=== PATIENT | female | born 1935 | race Caucasian/White ===

== ENCOUNTER 2017-10-07 01:36 | Emergency (ER) | payer MEDICARE ==
[~2017-10-07] VITALS: Ht 157.5 cm; Wt 76.2 kg
[~2017-10-07 01:36] MED LIST: ALLOPURINOL100 MG PO; CARVEDILOL3.125 MG PO; FUROSEMIDE20 MG PO; GABAPENTIN100 MG PO; GLIPIZIDE5 MG PO; GLUCOSAMINE CH1 EAC2 PO; GLUCOSAMINE CH1 EACH; LANTUS100 UNITS/ SC; LISINOPRIL5 MG PEG; PRAVASTATIN SOD10 MG PO; VITAMIN D10000 UNIT PO
--- OUTSIDE RECORDS SUMMARY | 2017-10-07 01:39 | XMS REPORT | Clinical Summary ---
Author Author FARHEEN [facility] Address Unknown Phone Unavailable Care Team Providers Care Toddler Lead Teacher Name Role Phone PCP Unavailable Allergies No Known Allergies Current Medications Prescription Sig. Disp. Refills Start End Date Status Date glipiZIDE (GLUCOTROL) 10 Take 10 mg by mouth 2 Active MG tablet (two) times daily before meals. furosemide (LASIX) 20 MG Take 20 mg by mouth 2 Active tablet (two) times daily. allopurinol (ZYLOPRIM) Take 100 mg by mouth Active 100 MG tablet daily. carvedilol (COREG) 12.5 Take 12.5 mg by mouth 2 Active MG tablet (two) times daily with breakfast and dinner. gabapentin (NEURONTIN) Take 100 mg by mouth 3 Active 100 MG capsule (three) times daily. pravastatin (PRAVACHOL) Take 10 mg by mouth Active 10 MG tablet daily. insulin glargine (LANTUS) Inject subcutaneously Active 100 unit/mL injection nightly Use as directed . traMADol (ULTRAM) 50 mg Take 1 tablet (50 mg 20 tablet 0 06/29/19 Active tablet total) by mouth every 6 18 19 (six) hours as needed for Pain. Max Daily Amount: 200 mg Active Problems Problem Noted Date ESRD (end stage renal disease) on dialysis ([facility]) 06/29/2017 Encounters Date Type Specialty Care Team Description 06/29/2017 Hospital Frank Dykes, ESRD (end stage renal Encounter MD disease) on dialysis ([facility]) 06/29/2017 Anesthesia Shahzad Slater MD Event 06/29/2017 Procedure Pass 06/29/2017 Surgery Frank Dykes, INSERTION,DIALYSIS MD CATHETER 06/28/2017 Orders Only Transplant Rylee Marinelli RN after 10/06/2016 Social History Tobacco Use Types Packs/Day Years Used Date Never Smoker Smokeless Tobacco: Never Used Alcohol Use Drinks/Week oz/Week Comments No Sex Assigned at Date Recorded Not on file Last Filed Vital Signs Vital Sign Reading Time Taken Blood Pressure 104/57 06/29/2017 11:15 AM TRAVEL RN Pulse 81 06/29/2017 11:15 AM TRAVEL RN Temperature 36.4 C (97.5 F) 06/29/2017 9:55 AM TRAVEL RN Respiratory Rate 16 06/29/2017 11:15 AM TRAVEL RN Oxygen Saturation 94% 06/29/2017 11:30 AM TRAVEL RN Inhaled Oxygen - - Concentration Weight 76.7 kg (169 lb) 06/29/2017 9:55 AM TRAVEL RN Height 157.5 cm (5' 2") 06/29/2017 9:55 AM TRAVEL RN Body Mass Index 30.91 06/29/2017 9:55 AM TRAVEL RN Plan of Treatment Not on file Procedures Procedure Name Priority Date/Time Associated Diagnosis Comments INSERTION,DIALYSIS 06/29/2017 ESRD (end stage renal CATHETER 7:30 AM TRAVEL RN disease) (HCC) Case Notes LEFT REVISION TRANSLOCAT ION LEFT UPPER EXTREMITY DIALYSIS ACCESS after 10/06/2016 Results * RHYTHM STRIP - SCAN (07/01/2017 7:50 AM) * TRANSFUSION SERVICE REPORT - SCAN (06/30/2017 5:43 PM) * Electrocardiogram, 12-lead (06/29/2017 7:51 AM) Specimen Performing Laboratory [employer] Narrative Ventricular Rate 61 BPM Atrial Rate 61 BPM P-R Interval 184 ms QRS Duration 82 ms Q-T Interval 452 ms QTC Calculation(Bazett) 455 ms P Seaman 23 degrees R Seaman 23 degrees T Seaman 71 degrees Normal sinus rhythm Normal ECG No previous ECGs available Confirmed by Camden López Alireaz ([id number]) on 06/29/2017 7:26:36 PM Procedure Note Interface, External Ris In - 06/29/2017 7:26 PM TRAVEL RN Ventricular Rate 61 BPM Atrial Rate 61 BPM P-R Interval 184 ms QRS Duration 82 ms Q-T Interval 452 ms QTC Calculation(Bazett) 455 ms P Seaman 23 degrees R Seaman 23 degrees T Seaman 71 degrees Normal sinus rhythm Normal ECG No previous ECGs available Confirmed by Camden López Alireaz ([id number]) on 06/29/2017 7:26:36 PM * Potassium-Stat Lab (06/29/2017 6:46 AM) Component Value Ref Range Potassium 3.6 3.6 - 5.5 meq/L Specimen Performing Laboratory Blood, Arterial [address] [address] * Glucose-Stat Lab (06/29/2017 6:46 AM) Component Value Ref Range Glucose 92 70 - 110 mg/dL Specimen Performing Laboratory Blood, [address] [address] * Type and screen, automated (06/29/2017 6:46 AM) Component Value Ref Range ABO/RH AUTOMATED (BEAKER) B POSITIVE Ab Scrn NEGATIVE Specimen Performing Laboratory Blood [address] [address] * HGB/HCT (H&H)-Stat Lab (06/29/2017 6:46 AM) Component Value Ref Range Hemoglobin 10.7 (L) 12.0 - 15.0 g/dL Hematocrit 31.0 (L) 36.0 - 45.0 % Specimen Performing Laboratory Blood, Arterial [address] [address] * CBC with platelet count + automated diff (06/29/2017 6:46 AM) Component Value Ref Range WBC 5.8 3.5 - 10.5 K/ L RBC 3.77 (L) 3.93 - 5.22 M/ L Hemoglobin 11.4 11.2 - 15.7 GM/DL Hematocrit 36.2 34.1 - 44.9 % MCV 96.0 (H) 79.4 - 94.8 fL MCH 30.2 25.6 - 32.2 pg MCHC 31.5 (L) 32.2 - 35.5 GM/DL RDW 14.5 (H) 11.7 - 14.4 % Platelets 145 (L) 150 - 450 K/CU MM MPV 11.0 9.4 - 12.3 fL nRBC 0 0 - 0 /100 WBC % Neutros 50 % % Lymphs 34 % % Monos 11 % % Eos 4 % % Baso 1 % # Neutros 2.89 1.56 - 6.13 K/ L # Lymphs 1.94 1.18 - 3.74 K/ L # Monos 0.61 (H) 0.24 - 0.36 K/ L # Eos 0.25 0.04 - 0.36 K/ L # Baso 0.04 0.01 - 0.08 K/ L Immature 0 0 - 1 % Granulocytes-Relative Specimen Performing Laboratory Blood [address] [address] * Prothrombin time/INR (06/29/2017 6:46 AM) Component Value Ref Range Protime 14.3 11.7 - 14.7 seconds INR 1.1 <=5.9 Specimen Performing Laboratory Blood [address] [address] Narrative RECOMMENDED COUMADIN/WARFARIN INR THERAPY RANGES STANDARD DOSE: 2.0 - 3.0 Includes: PROPHYLAXIS for venous thrombosis, systemic embolization; TREATMENT for venous thrombosis and/or pulmonary embolus. HIGH RISK: Target INR is 2.5-3.5 for patients with mechanical heart valves. * CBC with platelet count + automated diff (06/29/2017 6:46 AM) Specimen Performing Laboratory Blood Narrative The following orders were created for panel order CBC with platelet count + automated diff. Procedure Abnormality Status --------- - ------ CBC with platelet count ...[[id number]]AbnormalFinal result Please view results for these tests on the individual orders. * Basic Metabolic Panel (06/29/2017 6:46 AM) Component Value Ref Range Sodium 143 136 - 145 meq/L Potassium 3.7 3.5 - 5.1 meq/L Chloride 103 98 - 107 meq/L CO2 30 (H) 22 - 29 meq/L BUN 24 (H) 7 - 21 mg/dL Creatinine 3.21 (H) 0.57 - 1.25 mg/dL Glucose 92 70 - 105 mg/dL Calcium 8.7 8.4 - 10.2 mg/dL EGFR 14Comment: ESTIMATED GFR IS NOT ACCURATE mL/min/1.73 sq m CREATININE CLEARANCE IN PREDICTING GLOMERULAR FILTRATION RATE. ESTIMATED GFR IS NOT APPLICABLE FOR DIALYSIS PATIENTS. Specimen Performing Laboratory Blood [address] [address] after 10/06/2016
--- OUTSIDE RECORDS SUMMARY | 2017-10-07 01:39 | XMS REPORT ---
Author Author [facility] Address Unknown Phone Unavailable Care Team Providers Care Pediatric Speech Language Pathologist Name Role Phone NIMA HERNÁNDEZ Unavailable Unavailable MEGAN PITTS Unavailable Unavailable Problems This patient has no known problems. Allergies, Adverse Reactions, Alerts This patient has no known allergies or adverse reactions. Medications This patient has no known medications. Results Test Description Test Time Test Comments Text Results Atomic Results Result Comments BASIC METABOLIC PANEL 2017-06-29 10:41:00 SODIUM (BEAKER) (test ikly=552) 143 meq/L 136-145 POTASSIUM (BEAKER) (test mgqk=091) 3.7 meq/L 3.5-5.1 CHLORIDE (BEAKER) (test vtka=551) 103 meq/L 98-107 CO2 (BEAKER) (test txrf=375) 30 meq/L 22-29 BLOOD UREA NITROGEN (BEAKER) (test qine=805) 24 mg/dL 7-21 CREATININE (BEAKER) (test luov=991) 3.21 mg/dL 0.57-1.25 GLUCOSE RANDOM (BEAKER) (test vzel=740) 92 mg/dL 70-105 CALCIUM (BEAKER) (test dmuc=357) 8.7 mg/dL 8.4-10.2 EGFR (BEAKER) (test aubs=6054) 14 mL/min/1.73 sq m ESTIMATED GFR IS NOT ACCURATE CREATININE CLEARANCE IN PREDICTING GLOMERULAR FILTRATION RATE. ESTIMATED GFR IS NOT APPLICABLE FOR DIALYSIS PATIENTS. PROTHROMBIN TIME/VXO2654-10-10 07:21:00* Test Item Value Reference Range Comments PROTIME (BEAKER) (test esli=177) 14.3 seconds 11.7-14.7 INR (BEAKER) (test tskw=677) 1.1 <=5.9 RECOMMENDED COUMADIN/WARFARIN INR THERAPY RANGESSTANDARD DOSE: 2.0 - 3.0 Includes: PROPHYLAXIS for venous thrombosis, systemic embolization; TREATMENT for venous thrombosis and/or pulmonary embolus.HIGH RISK: Target INR is 2.5-3.5 for patients with mechanical heart valves.CBC W/PLT COUNT & AUTO [id number] 07:15:00* Test Item Value Reference Range Comments WHITE BLOOD CELL COUNT (BEAKER) (test vruj=426) 5.8 K/ L 3.5-10.5 RED BLOOD CELL COUNT (BEAKER) (test mbnd=259) 3.77 M/ L 3.93-5.22 HEMOGLOBIN (BEAKER) (test iuai=522) 11.4 GM/DL 11.2-15.7 HEMATOCRIT (BEAKER) (test atxo=801) 36.2 % 34.1-44.9 MEAN CORPUSCULAR VOLUME (BEAKER) (test grwz=900) 96.0 fL 79.4-94.8 MEAN CORPUSCULAR HEMOGLOBIN (BEAKER) (test eqtg=269) 30.2 pg 25.6-32.2 MEAN CORPUSCULAR HEMOGLOBIN CONC (BEAKER) (test txbf=641) 31.5 GM/DL 32.2- 35.5 RED CELL DISTRIBUTION WIDTH (BEAKER) (test xznq=240) 14.5 % 11.7-14.4 PLATELET COUNT (BEAKER) (test vklb=671) 145 K/CU MM 150-450 MEAN PLATELET VOLUME (BEAKER) (test sozx=462) 11.0 fL 9.4-12.3 NUCLEATED RED BLOOD CELLS (BEAKER) (test gqmc=909) 0 /100 WBC 0-0 NEUTROPHILS RELATIVE PERCENT (BEAKER) (test vakw=870) 50 % LYMPHOCYTES RELATIVE PERCENT (BEAKER) (test twtd=213) 34 % MONOCYTES RELATIVE PERCENT (BEAKER) (test wify=165) 11 % EOSINOPHILS RELATIVE PERCENT (BEAKER) (test bhej=047) 4 % BASOPHILS RELATIVE PERCENT (BEAKER) (test rluq=688) 1 % NEUTROPHILS ABSOLUTE COUNT (BEAKER) (test gohf=676) 2.89 K/ L 1.56-6.13 LYMPHOCYTES ABSOLUTE COUNT (BEAKER) (test yjuy=603) 1.94 K/ L 1.18-3.74 MONOCYTES ABSOLUTE COUNT (BEAKER) (test eftd=182) 0.61 K/ L 0.24-0.36 EOSINOPHILS ABSOLUTE COUNT (BEAKER) (test cuia=855) 0.25 K/ L 0.04-0.36 BASOPHILS ABSOLUTE COUNT (BEAKER) (test vuwo=229) 0.04 K/ L 0.01-0.08 IMMATURE GRANULOCYTES-RELATIVE PERCENT (BEAKER) (test sqbg=7025) 0 % 0-1 HGB/HCT (H&H) - STAT [id number] 06:53:00* Test Item Value Reference Range Comments HEMOGLOBIN (BEAKER) (test lxnt=971) 10.7 g/dL 12.0-15.0 HEMATOCRIT (BEAKER) (test krbw=957) 31.0 % 36.0-45.0 GLUCOSE-STAT [id number] 06:52:00* Test Item Value Reference Range Comments GLUCOSE RANDOM (BEAKER) (test slag=738) 92 mg/dL 70-110 POTASSIUM-STAT [id number] 06:52:00* Test Item Value Reference Range Comments POTASSIUM (BEAKER) (test rwwt=118) 3.6 meq/L 3.6-5.5 CHEST SINGLE (PORTABLE) [place] [address] Patient Name: YFN MEZA MR #: [id number] : 1935 Age/Sex: 81/F Req #: [id number] Adm Physician: MEGAN PITTS MD Ordered by: JONATHAN GALLEGO MD Report #: [id number] Location: MED/SURG Room/Bed: [facility] _ Procedure: [id number] DX/CHEST SINGLE (PORTABLE) Exam Date: 03/12/17 Exam Time: 1750 REPORT STATUS: Signed PROCEDURE: A single AP view of the chest. COMPARISON: Chest x-ray . INDICATIONS: CENTRAL LINE PLACEMENT, SOB FINDINGS: Lines/tubes: Right IJ dialysis catheter with tip at the atriocaval junction. Lungs : The lungs are well inflated and clear. There is no evidence of pneumonia or pulmonary edema. Pleura: There is no pleural effusion or pneumothorax. Heart and mediastinum: Mild cardiomegaly. Atherosclerotic calcifications in the aorta. Bones: No acute bony abnormality. IMPRESSION: 1. Right IJ dialysis catheter with tip at atriocaval junction. Good position. 2. No pneumothorax. Dictated by: Gab Richards M.D. on 03/12/2017 at 18:20 Electronically approved by: Gab Richards M.D. on 03/12/2017 at 18:20 Dictated By: GAB RICHARDS MD 19 Transcribed By: ADITYA on 03/12/171819 COPY TO: JONATHAN GALLEGO MD SHOULDER RIGHT COMPLETE [place] [address] Patient Name: YFN MEZA MR #: [id number] : 1935 Age/Sex: 81/F Req #: [id number] Adm Physician: MEGAN PITTS MD Ordered by: MEGAN PITTS MD Report #: [id number] Location: MED/ SURG Room/Bed: [facility] Procedure: [id number] DX/ SHOULDER RIGHT COMPLETE Exam Date: 03/12/17 Exam Time: 1750 REPORT STATUS: Signed PROCEDURE: X-RAY RIGHT SHOULDER, COMPLETE COMPARISON: None. INDICATIONS: RIGHT SHOULDER PAIN FINDINGS: There are no fractures, dislocations, lytic or blastic lesions. The bones are well-mineralized. The soft-tissues are unremarkable. Mild degenerative changes in the right glenohumeral joint and right a.c. joint. CONCLUSION: Mild degenerative changes in the right shoulder. Dictated by: Gab Richards M.D. on 03/12/2017 at 18:21 Electronically approved by: Gab Richards M.D. on 03/12/2017 at 18:21 Dictated By: GAB RICHARDS MD 20 Transcribed By: ADITYA on 03/12/171820 COPY TO: MEGAN PITTS MD ANKLE 3 + VIEWS RIGHT [place] [address] Patient Name: YFN MEZA MR #: [id number] : 1935 Age/Sex: 81/F Req #: [id number] Adm Physician: MEGAN PITTS MD Ordered by: MEGAN PITTS MD Report # : [id number] Location: MED/SURG Room/Bed: [facility] Procedure: [id number] DX/ANKLE 3 + VIEWS RIGHT Exam Date: 03/12/17 Exam Time: 1750 REPORT STATUS: Signed PROCEDURE: X- RAY RIGHT ANKLE, COMPLETE TECHNIQUE: 3 views of the right ankle. INDICATION: Right ankle pain. COMPARISON: None. FINDINGS: Diffuse osteopenia. Diffuse soft tissue swelling. Diffuse vascular calcifications. No fractures or dislocations. Calcaneal enthesophyte at the plantar fascia and Achilles tendon insertion. CONCLUSION: Diffuse soft tissue swelling of the right ankle with diffuse vascular calcifications. Dictated by: Gab Richards M.D. on 03/12/2017 at 18:22 Electronically approved by: Gab Richards M.D. on 03/12/2017 at 18:22 Dictated By: GAB RICHARDS MD 21 Transcribed By: ADITYA on 03/12/171821 COPY TO: MEGAN PITTS MD SPECIAL PROCEDURE IN DIRECTOR OF GRADUATE ADMISSIONS [place] [address] Patient Name: YFN MEZA MR #: [id number] : 1935 Age/Sex: 81/F Req #: [id number] Adm Physician: MEGAN PITTS MD Ordered by: CORNELIO MCKEON, DEDRA MCKEON Report #: [id number] Location: [facility]/SURG Room/Bed: [facility] _ Procedure: [id number] IR/SPECIAL PROCEDURE IN DIRECTOR OF GRADUATE ADMISSIONS Exam Date: Exam Time: REPORT STATUS: Signed Procedure: Tunneled hemodialysis catheter placement Medications: Versed 1 mg intravenous, fentanyl 50 mcg intravenous. The patient's vital signs, including pulse oximetry, were continuously monitored by the interventional radiology nurse. Fluoroscopy time: 0.4 minutes. Dose area product: 222.6 cGycm2 Contrast used: None Estimated blood loss: Minimal. Complications : No immediate. Procedure in detail: Informed consent for the procedure was obtained from the patient after discussion of risks and benefits. The right neck and upper chest was prepped and draped in the standard sterile fashion after the patient was placed in the supine position on the fluoroscopic table. 1% lidocaine was administered into the skin and subcutaneous tissues of the right lower neck for local anesthesia. A 0.035 inch Amplatz superstiff wire was advanced into the SVC. Attention was then turned to the right upper chest. 1% lidocaine was used to anesthetize a subcutaneous tract extending from the planned catheter exit site to the venotomy at the right lower neck. A stab incision was made on the right upper chest. Subsequently, the catheter was tunneled from the exit site of the right upper chest to the venotomy at the right lower neck. The retention cuff of the catheter was advanced well into the subcutaneous tunnel. Serial dilatation over the Amplatz wire was accomplished. Finally, a 16.5- Trinidadian peel-away sheath was advanced over the wire under fluoroscopic guidance. The wire and inner dilator of the sheath were removed and the catheter was advanced through the peel-away sheath, which was then broken and removed. The split tip catheter was positioned in the right atrium. Each catheter lumen showed good bidirectional flow. Each lumen was then packed with 1000 units of heparin. The catheter was secured at the exit site on the right upper chest with monofilament nylon suture. A Vicryl pursestring suture was placed around the catheter at the entry site. The venotomy at the right lower neck was closed with tissue adhesive and a single Vicryl suture. A sterile dressing was applied. The patient tolerated the procedure well without immediate complication. Impression: Successful placement of a tunneled dual-lumen hemodialysis catheter (16-Trinidadian, 19-cm tip-cuff length Bard split tip catheter) by a right internal jugular approach. Signed by: Dr. Jamie Boykin DO on 03/12/2017 4:50 PM Dictated By: JAMIE BOYKIN DO 1123 Transcribed By: NICCI on 03/23/17 1123 COPY TO: DEDRA GRIMES FLUORO GUIDANCE [address]/REM [place] [address] Patient Name: YFN MEZA MR #: [id number] : 1935 Age/Sex: 81/F Req #: [id number] Adm Physician: MEGAN PITTS MD Ordered by: MARSHALL SANDOVAL MD Report #: [id number] Location: MED/SURG Room/Bed: [facility] Procedure: [id number] DX/FLUORO GUIDANCE MARTHA [address] PL/REM Exam Date: 03/08/17 Exam Time: 1150 REPORT STATUS: Signed Procedure: Temporary central venous catheter placement. Indication: Need for short-term central venous access for dialysis. Comparison: None. Discussion: The risks and benefits of the procedure were discussed with the family of the patient. Questions were answered. An informed consent was obtained. The patient was placed supine on the angiographic table. A focused sonographic evaluation of the neck demonstrated a patent and compressible right internal jugular vein. The right neck was prepped and draped in the usual sterile fashion. Utilizing ultrasound guidance, a 21-gauge needle was inserted into the right internal jugular vein. A 0.018 inch wire was advanced centrally under fluoroscopic guidance. An access sheath was placed over the wire to secure the access. The wire was up sized to a 0.035 inch wire. A 0.035 inch wire was advanced into the right atrium and then into the inferior vena cava for stability. A single dilation was performed over the wire. A temporary double-lumen central venous hemodialysis catheter was advanced over the wire. The wire was removed. The catheter tip of the catheter was positioned within the right atrium. The ports demonstrated proper function with aspiration and flush. The lumens were flushed with sterile saline. The catheter was secured to the skin with 3-0 Ethilon suture. A sterile dressing was applied. There were no complications and the patient tolerated the procedure well. The patient was transferred to the postprocedure area in stable unchanged condition for further monitoring. Impression: Successful placement of right internal jugular temporary central venous hemodialysis catheter utilizing ultrasound and fluoroscopic guidance. Signed by: Dr. Megan Darnell M.D. on 03/09/2017 8:02 AM Dictated By: MEGAN DARNELL MD 1 Transcribed By: NICCI on 03/09/17801 COPY TO: MARSHALL SANDOVAL MD NON-TUNNELLED CVC CATH [place] [address] Patient Name: YFN MEZA MR #: [id number] : [birth year] Age/Sex: 81/F Req #: [id number] Adm Physician: MEGAN PITTS MD Ordered by: MARSHALL SANDOVAL MD Report #: [id number] Location: MED/ SURG Room/Bed: [facility] Procedure: [id number] IR/NON- TUNNELLED CVC CATH PLACMNT Exam Date: 03/08/17 Exam Time: 1150 REPORT STATUS: Signed Procedure: Temporary central venous catheter placement. Indication: Need for short-term central venous access for dialysis. Comparison: None. Discussion: The risks and benefits of the procedure were discussed with the family of the patient. Questions were answered. An informed consent was obtained. The patient was placed supine on the angiographic table. A focused sonographic evaluation of the neck demonstrated a patent and compressible right internal jugular vein. The right neck was prepped and draped in the usual sterile fashion. Utilizing ultrasound guidance, a 21-gauge needle was inserted into the right internal jugular vein. A 0.018 inch wire was advanced centrally under fluoroscopic guidance. An access sheath was placed over the wire to secure the access. The wire was up sized to a 0.035 inch wire. A 0.035 inch wire was advanced into the right atrium and then into the inferior vena cava for stability. A single dilation was performed over the wire. A temporary double-lumen central venous hemodialysis catheter was advanced over the wire. The wire was removed. The catheter tip of the catheter was positioned within the right atrium. The ports demonstrated proper function with aspiration and flush. The lumens were flushed with sterile saline. The catheter was secured to the skin with 3-0 Ethilon suture. A sterile dressing was applied. There were no complications and the patient tolerated the procedure well. The patient was transferred to the postprocedure area in stable unchanged condition for further monitoring. Impression: Successful placement of right internal jugular temporary central venous hemodialysis catheter utilizing ultrasound and fluoroscopic guidance. Signed by: Dr. Megan Darnell M.D. on 03/09/2017 8:02 AM Dictated By: MEGAN DARNELL MD 1 Transcribed By: NICCI on 03/09/17801 COPY TO: MARSHALL SANDOVAL MD IR CONSULT [place] [address] Patient Name: YFN MEZA MR #: [id number] : 1935 Age/Sex: 81/F Req #: [id number] Adm Physician: MEGAN PITTS MD Ordered by: MARSHALL SANDOVAL MD Report # : [id number] Location: MED/SURG Room/Bed: [facility] Procedure: [id number] DX/IR CONSULT Exam Date: Exam Time: REPORT STATUS: Signed Procedure: Temporary central venous catheter placement. Indication: Need for short-term central venous access for dialysis. Comparison: None. Discussion: The risks and benefits of the procedure were discussed with the family of the patient. Questions were answered. An informed consent was obtained. The patient was placed supine on the angiographic table. A focused sonographic evaluation of the neck demonstrated a patent and compressible right internal jugular vein. The right neck was prepped and draped in the usual sterile fashion. Utilizing ultrasound guidance, a 21-gauge needle was inserted into the right internal jugular vein. A 0.018 inch wire was advanced centrally under fluoroscopic guidance. An access sheath was placed over the wire to secure the access. The wire was up sized to a 0.035 inch wire. A 0.035 inch wire was advanced into the right atrium and then into the inferior vena cava for stability. A single dilation was performed over the wire. A temporary double-lumen central venous hemodialysis catheter was advanced over the wire. The wire was removed. The catheter tip of the catheter was positioned within the right atrium. The ports demonstrated proper function with aspiration and flush. The lumens were flushed with sterile saline. The catheter was secured to the skin with 3-0 Ethilon suture. A sterile dressing was applied. There were no complications and the patient tolerated the procedure well. The patient was transferred to the postprocedure area in stable unchanged condition for further monitoring. Impression: Successful placement of right internal jugular temporary central venous hemodialysis catheter utilizing ultrasound and fluoroscopic guidance. Signed by: Dr. Megan Darnell M.D. on 03/09/2017 8:02 AM Dictated By: MEGAN DARNELL MD 1 Transcribed By: NICCI on 03/09/17801 COPY TO: MARSHALL SANDOVAL MD CT CERVICAL SPINE WO [place] [address] Patient Name: YFN MEZA MR #: [id number] : 1935 Age/Sex: 81/F Req #: [id number] Adm Physician: Ordered by: MARSHALL SANDOVAL MD Report #: [id number] Location: ER Room/Bed: Procedure: [id number] CT/CT CERVICAL SPINE WO Exam Date: Exam Time: REPORT STATUS: Signed Exams: Head and cervical spine CTs without IV contrast History: Syncope Comparison studies: Head and cervical spine CTs of 05/01/[address] of 10/06/2016. Technique: Axial images were obtained from the brain and cervical spine. Coronal and sagittal images reconstructed from the axial data. Intravenous contrast: None Findings: Head CT: Scalp: No abnormalities. Bones: No fractures, blastic or lytic lesions. Extra-axial spaces: No masses. No fluid collections. Brain sulci: Mildly prominent but age appropriate. Ventricles: Mild compensatory dilatation. No hydrocephalus. Parenchyma: No abnormal densities. No masses, hemorrhage, acute or chronic vascular insults. Sellar/suprasellar region: No abnormalities. Craniocervical junction: The foramen magnum is patent. No Chiari one malformation. Paranasal sinuses: Partially opacified right maxillary sinus with hyperdense inspissated secretions and circumferential chronic reactive mucoperiosteal thickening. Cervical spine CT: Fractures: None. Soft tissues: No gross abnormalities. Atlantoaxial articulation: Intact. Alignment: Straightened cervical curvature may be positional or unchanged degenerative 2 mm retrolisthesis of C4 on C5. Cervicomedullary junction: No abnormalities. The foramen magnum is patent. Vertebrae: No evidence of infection. Unchanged nonaggressive-appearing 6 mm sclerotic lesion in the C3 vertebral body. Degenerative changes: Moderately degenerated C4-C5 disc. Disc osteophyte complexes from C3 through C7 and calcified central disc protrusion at C3-C4 indent the thecal sac and result in mild canal stenosis at C3-C4 and at C4-C5. Mild multilevel foraminal stenosis from C3 to C7 due to uncovertebral facet arthrosis. Incidental findings: Calcified atherosclerosis in the aortic arch subclavian arteries, common carotid arteries, bilateral cervical carotid bifurcations, carotid bulbs, carotid siphons, intradural vertebral arteries and in the proximal basilar artery. Bilateral lens replacements related to previous cataract surgery. Unchanged enlarged left thyroid lobe with 5 mm coarse calcification and hypodense nodule in the inferior lobe which measures up to 2.8 cm. IMPRESSION: Head CT: 1. No acute intracranial abnormalities.. 2. No changes from the previous head CT of 10/06/2016. Cervical spine CT: 1. No cervical spine fracture or acute subluxations. 2. Degenerative changes as described. 3. Incidental findings as described. 4. No changes from the previous cervical spine CT of 05/01/2016 Cannot adequately evaluate ligament, spinal cord and or vascular abnormalities on the basis of this examination. Signed by : Dr. Harsh Powers M.D. on 03/08/2017 1:50 AM Dictated By: HARSH POWERS MD 9 Transcribed By: NICCI on 03/08/17149 COPY TO: MARSHALL SANDOVAL MD CT BRAIN WO [facility] [address] [place] [address] Patient Name: YFN MEZA MR #: [id number] : 1935 Age/Sex: 81/F Req #: [id number] Adm Physician: Ordered by: MARSHALL SANDOVAL MD Report #: [id number] Location: ER Room/Bed: Procedure: [id number] CT/CT BRAIN WO Exam Date: Exam Time: REPORT STATUS : Signed Exams: Head and cervical spine CTs without IV contrast History: Syncope Comparison studies: Head and cervical spine CTs of 05/01/[address] of 10/06/2016. Technique: Axial images were obtained from the brain and cervical spine. Coronal and sagittal images reconstructed from the axial data. Intravenous contrast: None Findings: Head CT: Scalp : No abnormalities. Bones: No fractures, blastic or lytic lesions. Extra- axial spaces: No masses. No fluid collections. Brain sulci: Mildly prominent but age appropriate. Ventricles: Mild compensatory dilatation. No hydrocephalus. Parenchyma: No abnormal densities. No masses, hemorrhage, acute or chronic vascular insults. Sellar/suprasellar region: No abnormalities. Craniocervical junction: The foramen magnum is patent. No Chiari one malformation. Paranasal sinuses: Partially opacified right maxillary sinus with hyperdense inspissated secretions and circumferential chronic reactive mucoperiosteal thickening. Cervical spine CT: Fractures: None. Soft tissues: No gross abnormalities. Atlantoaxial articulation: Intact. Alignment: Straightened cervical curvature may be positional or unchanged degenerative 2 mm retrolisthesis of C4 on C5. Cervicomedullary junction: No abnormalities. The foramen magnum is patent. Vertebrae: No evidence of infection. Unchanged nonaggressive-appearing 6 mm sclerotic lesion in the C3 vertebral body. Degenerative changes: Moderately degenerated C4-C5 disc. Disc osteophyte complexes from C3 through C7 and calcified central disc protrusion at C3-C4 indent the thecal sac and result in mild canal stenosis at C3-C4 and at C4-C5. Mild multilevel foraminal stenosis from C3 to C7 due to uncovertebral facet arthrosis. Incidental findings: Calcified atherosclerosis in the aortic arch subclavian arteries, common carotid arteries, bilateral cervical carotid bifurcations, carotid bulbs, carotid siphons, intradural vertebral arteries and in the proximal basilar artery. Bilateral lens replacements related to previous cataract surgery. Unchanged enlarged left thyroid lobe with 5 mm coarse calcification and hypodense nodule in the inferior lobe which measures up to 2.8 cm. IMPRESSION: Head CT: 1. No acute intracranial abnormalities.. 2. No changes from the previous head CT of 10/06/2016. Cervical spine CT: 1. No cervical spine fracture or acute subluxations. 2. Degenerative changes as described. 3. Incidental findings as described. 4. No changes from the previous cervical spine CT of 05/01/2016 Cannot adequately evaluate ligament, spinal cord and or vascular abnormalities on the basis of this examination. Signed by: Dr. Harsh Powers M.D. on 2016 1:50 AM Dictated By: HARSH POWERS MD 9 Transcribed By: NICCI on 03/08/17149 COPY TO: MARSHALL SANDOVAL MD [facility] [place] [address] Patient Name: YFN MEZA MR #: [id number] : 1935 Age/Sex: 81/F Req #: [id number] Adm Physician: Ordered by: MARSHALL SANDOVAL MD Report #: [id number] Location: Room/Bed: Procedure: [id number] DX/CHEST SINGLE (PORTABLE) Exam Date: Exam Time: REPORT STATUS: Signed EXAMINATION: CHEST SINGLE (PORTABLE) INDICATION: Syncopal episode COMPARISON: 10/06/2016 FINDINGS: TUBES and LINES: None. LUNGS: Lungs are not well inflated. Lungs are clear. There is mild prominence of the central pulmonary vasculature, consistent with pulmonary venous congestion. PLEURA: No pleural effusion or pneumothorax. HEART AND MEDIASTINUM: The cardiomediastinal silhouette is unremarkable. There are atherosclerotic calcifications within the aorta. BONES AND SOFT TISSUES: No acute osseous lesion. Soft tissues are unremarkable. UPPER ABDOMEN: No free air under the diaphragm. IMPRESSION: No acute thoracic abnormality. Moderate enlargement of the cardiac silhouette without decompensation. Signed by: Dr. Arjun Mcneal M.D. on 03/08/2017 2:09 AM Dictated By: ARJUN ANTONIO MD 8 Transcribed By: NICCI on 03/08/17208 COPY TO: MARSHALL SANDOVAL MD GUIDANCE FOR VASCULAR ACCES [place] [address] Patient Name: YFN MEZA MR #: [id number] : 1935 Age/Sex: 81/F Req #: [id number] Adm Physician: MEGAN PITTS MD Ordered by: MEGAN PITTS MD Report #: [id number] Location: MED/SURG Room/Bed: [facility] Procedure: [id number] US/US GUIDANCE FOR VASCULAR ACCES Exam Date: 03/08/17 Exam Time: 1145 REPORT STATUS: Signed Procedure: Temporary central venous catheter placement. Indication: Need for short-term central venous access for dialysis. Comparison: None. Discussion: The risks and benefits of the procedure were discussed with the family of the patient. Questions were answered. An informed consent was obtained. The patient was placed supine on the angiographic table. A focused sonographic evaluation of the neck demonstrated a patent and compressible right internal jugular vein. The right neck was prepped and draped in the usual sterile fashion. Utilizing ultrasound guidance, a 21-gauge needle was inserted into the right internal jugular vein. A 0.018 inch wire was advanced centrally under fluoroscopic guidance. An access sheath was placed over the wire to secure the access. The wire was up sized to a 0.035 inch wire. A 0.035 inch wire was advanced into the right atrium and then into the inferior vena cava for stability. A single dilation was performed over the wire. A temporary double-lumen central venous hemodialysis catheter was advanced over the wire. The wire was removed. The catheter tip of the catheter was positioned within the right atrium. The ports demonstrated proper function with aspiration and flush. The lumens were flushed with sterile saline. The catheter was secured to the skin with 3-0 Ethilon suture. A sterile dressing was applied. There were no complications and the patient tolerated the procedure well. The patient was transferred to the postprocedure area in stable unchanged condition for further monitoring. Impression: Successful placement of right internal jugular temporary central venous hemodialysis catheter utilizing ultrasound and fluoroscopic guidance. Signed by: Dr. Megan Darnell M.D. on 03/09/2017 8:02 AM Dictated By: MEGAN DARNELL MD 1 Transcribed By: NICCI on 03/09/17801 COPY TO: MEGAN PITTS MD
[2017-10-07 02:48] LABS: BASOPHILS % 0.7 % (0.0-1.0); EOSINOPHILS # (AUTO) 0.2 (0.0-0.4); EOSINOPHILS % 3.4 % (0.0-6.0); HEMATOCRIT 35.3 % (34.2-44.1); HEMOGLOBIN 11.4 g/dL (12.0-16.0); LYMPHOCYTES # (AUTO) 1.9 (1.0-3.2); LYMPHOCYTES % 34.6 % (18.0-39.1); MEAN CORPUSCULAR HEMOGLOBIN 31.6 pg (28-32); MEAN CORPUSCULAR HGB CONC 32.3 g/dL (31-35); MEAN CORPUSCULAR VOLUME 97.8 fL (81-99); MONOCYTES # (AUTO) 0.7 (0.2-0.8); MONOCYTES % 11.6 % (4.4-11.3); NEUTROPHILS # (AUTO) 2.8 (2.1-6.9); NEUTROPHILS % 49.3 % (38.7-80.0); PLATELET COUNT 147 x10e3/uL (140-360); RED BLOOD COUNT 3.61 x10e6/uL (3.6-5.1); RED CELL DISTRIBUTION WIDTH 13.6 % (11.7-14.4)
[2017-10-07 03:00] LABS: ALBUMIN 3.2 g/dL (3.5-5.0); ALBUMIN/GLOBULIN RATIO 0.9 (0.8-2.0); ANION GAP 15.8 mmol/L (8-16); CALCIUM 9.4 mg/dL (8.4-10.2); CREATININE, SERUM 3.17 mg/dL (0.57-1.11); MAGNESIUM 1.9 MG/DL (1.3-2.1); POTASSIUM 3.8 mmol/L (3.5-5.1)
--- NOTE | 2017-10-07 03:05 | Diagnostic Imaging Report ---
EXAM: CHEST SINGLE (PORTABLE), AP 1 view INDICATION: Heart palpitations COMPARISON: AP view of the chest March 12, 2017 FINDINGS: LINES/TUBES: None LUNGS: No consolidations or edema. PLEURA: No effusions or pneumothorax. HEART AND MEDIASTINUM: Normal size and contour. BONES AND SOFT TISSUES: No acute findings. IMPRESSION: No acute thoracic abnormality. Signed by: Dr. Concetta Laws M.D. on 10/07/2017 3:02 AM
[2017-10-07 03:19] LABS: CREATINE KINASE MB 1.2 ng/mL (0-5.0); THYROID STIMULATING HORMONE 0.951 uIU/mL (0.350-4.940)
== END 2017-10-07 04:10 | disposition home or self-care (01) ==
LOC: ER 01:36
CPT/HCPCS: 36415; 71045; 80053; 82550; 82553; 83735; 84443; 84484; 85025; 93005; 99284

== ENCOUNTER 2017-12-20 08:12 | Emergency (ER) | payer MEDICARE ==
[~2017-12-20] VITALS: Ht 157.5 cm; Wt 77.1 kg
[2017-12-20 08:41] LABS: CLARITY,URINE CLOUDY (CLEAR); COLOR,URINE AMBER (YELLOW)
[2017-12-20 08:42] LABS: BILIRUBIN,URINE NEGATIVE (NEGATIVE); KETONES,URINE NEGATIVE (NEGATIVE); LEUKOCYTE ESTERASE ,URINE 2+ (NEGATIVE); NITRITE,URINE NEGATIVE (NEGATIVE); PROTEIN,URINE DIPSTICK 3+ (NEGATIVE); URINE UROBILINOGEN 0.2 mg/dL (0.2 - 1)
[2017-12-20 08:50] LABS: BACTERIA,URINE MODERATE /HPF; EPITHELIAL CELLS,URINE RARE /LPF
[2017-12-20 09:21] VITALS: BP 139/64
[2017-12-20] MEDS ORDERED: CEFTRIAXONE SOD 1 GM VIAL IM ONE (09:30)
[2017-12-20] MEDS ORDERED: MECLIZINE HCL 12.5 MG TAB ONE (11:31)
== END 2017-12-20 09:30 | disposition home or self-care (01) ==
LOC: ER 08:14
DX: R30.0 Dysuria (principal); N30.01 Acute cystitis with hematuria; I12.0 Hypertensive chronic kidney disease with stage 5 chronic kidney disease or end stage renal disease; E11.22 Type 2 diabetes mellitus with diabetic chronic kidney disease; N18.6 End stage renal disease; Z99.2 Dependence on renal dialysis
CPT/HCPCS: 81001; 87086; 87186; 99283

== ENCOUNTER 2018-03-21 13:41 | Inpatient (IN) | payer MEDICARE ==
[~2018-03-21] VITALS: Ht 157.5 cm; Wt 64.7 kg
[2018-03-21 14:20] LABS: BASOPHILS % 0.3 % (0.0-1.0); EOSINOPHILS # (AUTO) 0.1 (0.0-0.4); EOSINOPHILS % 1.8 % (0.0-6.0); HEMATOCRIT 34.3 % (34.2-44.1); HEMOGLOBIN 10.8 g/dL (12.0-16.0); LYMPHOCYTES # (AUTO) 0.7 (1.0-3.2); LYMPHOCYTES % 9.4 % (18.0-39.1); MEAN CORPUSCULAR HEMOGLOBIN 31.4 pg (28-32); MEAN CORPUSCULAR HGB CONC 31.5 g/dL (31-35); MEAN CORPUSCULAR VOLUME 99.7 fL (81-99); MONOCYTES # (AUTO) 0.6 (0.2-0.8); MONOCYTES % 8.6 % (4.4-11.3); NEUTROPHILS # (AUTO) 5.9 (2.1-6.9); NEUTROPHILS % 79.5 % (38.7-80.0); PLATELET COUNT 229 x10e3/uL (140-360); RED BLOOD COUNT 3.44 x10e6/uL (3.6-5.1); RED CELL DISTRIBUTION WIDTH 14.4 % (11.7-14.4)
[2018-03-21 14:30] LABS: INR 1.02; PROTHROMBIN TIME 14.3 seconds (11.9-14.5)
[2018-03-21 14:31] LABS: PARTIAL THROMBOPLASTIN TIME 34.1 seconds (23.8-35.5)
[2018-03-21 14:38] LABS: ALBUMIN 2.6 g/dL (3.5-5.0); ALBUMIN/GLOBULIN RATIO 0.7 (0.8-2.0); ANION GAP 21.2 mmol/L (8-16); CALCIUM 8.7 mg/dL (8.4-10.2); CREATININE, SERUM 7.41 mg/dL (0.57-1.11); POTASSIUM 4.2 mmol/L (3.5-5.1)
[2018-03-21 14:45] LABS: CREATINE KINASE MB 0.9 ng/mL (0-5.0)
[2018-03-21 18:22] LABS: BILIRUBIN,URINE 1+ (NEGATIVE); CLARITY,URINE SL CLOUDY (CLEAR); COLOR,URINE YELLOW (YELLOW); KETONES,URINE NEGATIVE (NEGATIVE); LEUKOCYTE ESTERASE ,URINE NEGATIVE (NEGATIVE); NITRITE,URINE NEGATIVE (NEGATIVE); PROTEIN,URINE DIPSTICK 2+ (NEGATIVE); URINE UROBILINOGEN 0.2 mg/dL (0.2 - 1)
[2018-03-21 18:56] LABS: BACTERIA,URINE MODERATE /HPF; EPITHELIAL CELLS,URINE MANY /LPF; TRANSITIONAL EPI CELLS,URINE MODERATE; WBC,URINE (MAN) 0-5 /HPF (0-5)
--- NOTE | 2018-03-21 19:02 | Diagnostic Imaging Report ---
EXAMINATION: CHEST SINGLE (PORTABLE) INDICATION: Shortness of breath \S\SOB \S\[id number] \S\1745 \S\Y COMPARISON: Chest radiograph 10/07/2017 FINDINGS: AP view TUBES and LINES: None. LUNGS: Lungs are not well inflated. Right basilar airspace opacity. PLEURA: No pleural effusion or pneumothorax. HEART AND MEDIASTINUM: The cardiomediastinal silhouette is unremarkable. BONES AND SOFT TISSUES: No acute osseous lesion. Soft tissues are unremarkable. UPPER ABDOMEN: No free air under the diaphragm. IMPRESSION: Right basilar airspace opacity may represent atelectasis or developing pneumonia in the appropriate clinical setting. Signed by: DR. Bernard Solares MD on 03/21/2018 6:59 PM
[2018-03-21] MEDS ORDERED: VANCOMYCIN HCL 1GM/NS 250 ML BAG IV STA ×2 (19:16→19:36)
[2018-03-21] MEDS ORDERED: ALBUTEROL SULF 0.083% NEB SOLN 3 ML NEB NEB SCH (19:30)
[2018-03-21] MEDS ORDERED: SODIUM CHLORIDE FLUSH 10 ML SYR INJ PRN (19:30)
[2018-03-21] MEDS: PIPERACILLIN/TAZO 2.25 GM 50 ML IV SCH (19:59)
[2018-03-21] MEDS ORDERED: SODIUM CHLORIDE 23.4% 154 MEQ in DEXTROSE 10% 1,000 ML IV SCH ×2 (20:30→21:00)
[2018-03-21] MEDS ORDERED: SODIUM CHLORIDE 0.9% IV SCH (20:30)
[2018-03-21] MEDS ORDERED: DEXTROSE 10% 1,000 ML IV SCH (20:30)
[2018-03-21] MEDS ORDERED: DEXTROSE 10% IV SCH (20:30)
[2018-03-21] MEDS ORDERED: DEXTROSE 50% SYRINGE 50 ML IV PRN (20:30)
--- NOTE | 2018-03-21 20:35 | Diagnostic Imaging Report ---
EXAM: CT Chest WITHOUT contrast INDICATION: \S\R/O PNEUMONIA \S\[id number] \S\1954 \S\N COMPARISON: Chest radiograph 03/21/2018. Abdominal CT 02/04/2016. TECHNIQUE: Chest was scanned utilizing a multidetector helical scanner from the lung apex through the level of the adrenal glands without administration of IV contrast. Absence of intravenous contrast decreases sensitivity for detection of lymphadenopathy and vascular pathology. Coronal and sagittal reformations were obtained. Routine protocol was performed. IV CONTRAST: None COMPLICATIONS: None RADIATION DOSE: Total DLP: 434.4 mGy*cm Estimated effective dose: (DLP x 0.014 x size factor) mSv CTDIvol has been reviewed. It is below the limits set by the Radiation Protocol Committee (RPC). Dose modulation, iterative reconstruction, and/or weight based adjustment of the mA/kV was utilized to reduce the radiation dose to as low as reasonably achievable. FINDINGS: LINES/ TUBES: None. LUNGS AND AIRWAYS: Bilateral lower lobe opacities likely representing atelectasis secondary to adjacent effusions. Mild dependent groundglass opacities and interlobular septal thickening. Airways are normal. PLEURA: Small left and trace right pleural effusion. HEART AND MEDIASTINUM: Hypoattenuating 3 cm nodule in the left thyroid lobe. No mediastinal, hilar or axillary lymphadenopathy. The heart is mildly enlarged. There is no pericardial effusion. Main pulmonary artery is enlarged measuring 3.9 cm in diameter which is seen with pulmonary hypertension. Ascending aorta measures 4 cm in diameter, ectatic. Moderate atherosclerotic calcifications. UPPER ABDOMEN: Mild ascites in the visualized upper abdomen. Borderline enlarged cardiophrenic node measuring 1 cm, previously 0.5 cm cholecystectomy. Diffuse atherosclerosis and arteriosclerosis. BONES: There are degenerative changes in the thoracic spine. SOFT TISSUES: Hysterectomy. IMPRESSION: Mild interstitial edema with small left and trace right pleural effusion. Mild ascites. Increased size of a cardiophrenic node which is nonspecific, currently upper limits of normal in size. Enlarged pulmonary artery suggestive of pulmonary hypertension. Mild ascending aortic ectasia measuring 4 cm. Left thyroid lobe 3 cm nodule which can be further evaluated with thyroid ultrasound as clinically indicated. Signed by: DR. Bernard Solares MD on 03/21/2018 8:31 PM
[2018-03-21] MEDS: INSULIN REGULAR, HUMAN 100 UNIT/1 ML 3ML VIAL SQ SCH (20:48)
[2018-03-21 23:10] VITALS: BP 168/71
[2018-03-22] MEDS ORDERED: IPRATROPIUM BROMIDE 0.02% 2.5 ML NEB NEB SCH
[2018-03-22 04:00] VITALS: BP 133/62
[2018-03-22 06:14] LABS: CREATINE KINASE MB 0.8 ng/mL (0-5.0)
[2018-03-22] MEDS: INSULIN REGULAR, HUMAN 100 UNIT/1 ML 3ML VIAL SQ SCH (07:30)
[2018-03-22] MEDS: PIPERACILLIN/TAZO 2.25 GM 50 ML IV SCH ×2 (08:25→21:34)
[2018-03-22 08:33] VITALS: BP 113/55
[2018-03-22] MEDS ORDERED: PIPERACILLIN/TAZO 2.25 GM 50 ML IV SCH (09:00)
[2018-03-22] MEDS ORDERED: DEXTROSE 50% SYRINGE 50 ML IV PRN (09:45)
[2018-03-22] MEDS ORDERED: GUAIFENESIN 600 MG TAB PO PRN (09:45)
[2018-03-22] MEDS ORDERED: ALBUTEROL/IPRATROPIUM 3 ML NEB NEB PRN (09:45)
--- NOTE | 2018-03-22 10:46 | History and Physical ---
CHIEF COMPLAINT: Cough, abdominal pain, chest pain, and shortness breath. HISTORY: Patient is an 82-year-old female with end-stage renal disease, on dialysis, came in with fluid overload. The patient was having coughing, wheezing, shortness breath, rigors, and chills. The patient's chest x-ray showed pneumonia. The patient is admitted for a CT scan and antibiotics. The patient has been sick since last . The patient is currently stable. She is still having cough and low-grade fever. She did not have her dialysis as yet. PAST MEDICAL HISTORY: Diabetes, type 2, dyslipidemia, hypertension, end-stage renal disease, on hemodialysis Wednesday, and Wednesday, reflux, congestive heart failure, chronic anemia, obesity. PAST SURGICAL HISTORY: Left AV fistula creation, hysterectomy, cholecystectomy, , abdominal hernia repair, mastectomy for breast cancer. SOCIAL HISTORY: Patient lives with her family. She does not smoke or use alcohol. No recreational drugs. ALLERGIES: NO KNOWN ALLERGIES. HOME MEDICATIONS: List is reviewed. REVIEW OF SYSTEMS: Fever, chills, shortness of breath, cough, chest and abdominal pain with coughing and abdominal distension. PHYSICAL EXAMINATION VITAL SIGNS: Temperature is 99.5, blood pressure 120/73, pulse rate 83, respirations 22. GENERAL: Patient is not in acute distress. She does have cough and deep breathing is a problem. HEENT: Normocephalic, atraumatic and anicteric. NECK: Supple grossly. PULMONARY: Diminished breath sounds bilaterally with coarses. CARDIOVASCULAR: S1 and S2. Regular rate and rhythm. ABDOMEN: Soft. Distention with fluid and ascites. EXTREMITIES: No cyanosis. Possible edema. NEUROLOGICAL: No focal deficit. LABORATORY: Sodium is 137, potassium 4.2, chloride 101, bicarb 19, BUN 56, creatinine 7.4, glucose 119. WBC 7.4, hemoglobin 10.8, hematocrit 34.3, and platelets is 229,000. CT scan showed interstitial edema and pulmonary hypertension. Left thyroid lobe 3-cm nodule. Abdominal ascites. IMPRESSION 1. Acute bronchitis with fever and chills. 2. Fluid overload secondary to end-stage renal disease, on dialysis. 3. Incidental finding of thyroid nodule. 4. Multiple complaints including low-grade fever, shortness of breath, cough, and abdominal discomfort with ascites. PLAN: Patient will be admitted. She will continue with antibiotics and nebulizer treatment. CT of abdomen and pelvis to evaluate the patient's ascites. Dr. Rae will see the patient for dialysis. Check blood culture. Continue with current treatment including nebulizer. Discontinue IV fluids for now. Job#: [id number] RI
[2018-03-22] MEDS: ALLOPURINOL 100 MG TAB PO SCH (11:10)
[2018-03-22] MEDS: INSULIN LISPRO 100 UNIT/1 ML 3ML VIAL SQ SCH ×3 (11:30→21:00)
[2018-03-22 12:22] VITALS: BP 105/59
[2018-03-22] MEDS: ALBUTEROL/IPRATROPIUM 3 ML NEB NEB SCH ×3 (13:38→23:30)
--- NOTE | 2018-03-22 14:20 | Consultation ---
DATE OF CONSULTATION: March 22, 2018 NEPHROLOGY CONSULTATION REQUESTING PHYSICIAN: Dr. Ruff. REASON FOR CONSULTATION: ESRD. Thank you for allowing us to participate in Ms. Block's care. HISTORY OF PRESENT ILLNESS: This is an 82-year-old female who came to the ER with symptoms of not feeling well, chills, some cough. She also had low-grade fever. She has missed at least 1 to 2 days of dialysis. Normally dialyzes Wednesday//Wednesday via left upper extremity AV fistula. Chest x-ray was suggestive of an infiltrate. CAT scan looks more like fluid, but clinically she may have some bronchitis or a new pneumonia. PAST HISTORY 1. Type 2 diabetes. 2. Hypertension. 3. Number 1 and number 2 causing ESRD with left upper extremity fistula, history of fluid overload in the past. 4. Anemia of CKD. 5. Mastectomy for breast cancer. HOME MEDICATIONS: Please see list. SOCIAL HISTORY: Lives with her family. ALLERGIES: NONE KNOWN. REVIEW OF SYSTEMS CONSTITUTIONAL: Low-grade fevers at home. CARDIAC: Some dyspnea. RESPIRATORY: Dyspnea plus cough plus no sputum. GI: Perhaps her abdomen was a bit more distended. MUSCULOSKELETAL: Occasional arthralgias, which is a chronic problem. REST OF REVIEW: Negative. PHYSICAL EXAMINATION GENERAL: Lying in bed. Appears slightly dyspneic, trying to cough. VITAL SIGNS: Temperature is 97.1. Pulse 80, sounds regular. Blood pressure 113/55. HEENT: Grossly atraumatic. CHEST: Faint crackles at the bases. No wheeze. CARDIAC: Normal heart tones. Rhythm sounds regular. EXTREMITIES: Trace edema. ABDOMEN: Benign. NEUROLOGIC: Alert, appropriate. VASCULAR: Left upper extremity AV fistula is patent. CT scan and chest x-ray are noted above. LABS: Hemoglobin is 10.3. Albumin is 2.8. Last potassium was 4.2. Serum CO2 was depressed at 19. ASSESSMENT 1. End-stage renal disease secondary to diabetic hypertensive end-organ damage, fluid overload, metabolic acidosis, underlying pneumonia which precipitated this hypoglycemia secondary to the infection. 1. Hypoalbuminemia. PLAN 1. Hemodialysis today to get back on regular schedule. Will try to get 3 liters off and see how she does. She generally does not tolerate large volume fluid removal, and depending on the situation we may have to dialyze her back to back. The dialysis should fix the metabolic acidosis also. Keep salt and water restricted. 2. Add Nepro supplement. Sincerely, Job#: [id number] EV
--- OUTSIDE RECORDS SUMMARY | 2018-03-22 14:23 | XMS REPORT | Clinical Summary ---
Author Author FARHEEN [facility] Address Unknown Phone Unavailable Care Team Providers Care Heater Planer Operator Name Role Phone PCP Unavailable Allergies No [...] tablet (50 mg 20 tablet 0 06/29/19 06/29/19 Active tablet total) by mouth every 6 18 19 (six) hours as needed for Pain. Max Daily Amount: 200 mg Active Problems Problem Noted Date ESRD (end stage renal disease) on dialysis ([facility]) 06/29/2017 Encounters Date Type Specialty Care Team Description 06/29/2017 Hospital Frank Dykes, ESRD (end stage renal Encounter MD disease) on dialysis ([facility]) 06/29/2017 Anesthesia Shahzad Slater MD Event 06/29/2017 Procedure Pass 06/29/2017 Surgery Frank Dykes, INSERTION,DIALYSIS MD CATHETER 06/28/2017 Orders Only Transplant Rylee Marinelli RN after 03/20/2017 Social History Tobacco Use Types Packs/Day Years Used Date Never Smoker Smokeless Tobacco: Never Used Alcohol Use Drinks/Week oz/Week Comments No Sex Assigned at Date Recorded Not on file Last Filed Vital Signs Vital Sign Reading Time Taken Blood Pressure 104/57 06/29/2017 11:15 AM BINGO WORKER Pulse 81 06/29/2017 11:15 AM BINGO WORKER Temperature 36.4 C (97.5 F) 06/29/2017 9:55 AM BINGO WORKER Respiratory Rate 16 06/29/2017 11:15 AM BINGO WORKER Oxygen Saturation 94% 06/29/2017 11:30 AM BINGO WORKER Inhaled Oxygen - - Concentration Weight 76.7 kg (169 lb) 06/29/2017 9:55 AM BINGO WORKER Height 157.5 cm (5' 2") 06/29/2017 9:55 AM BINGO WORKER Body Mass Index 30.91 06/29/2017 9:55 AM BINGO WORKER Plan of Treatment Not on file Procedures Procedure Name Priority Date/Time Associated Diagnosis Comments INSERTION,DIALYSIS 06/29/2017 ESRD (end stage renal CATHETER 7:30 AM BINGO WORKER disease) (HCC) Case Notes LEFT REVISION TRANSLOCAT ION LEFT UPPER EXTREMITY DIALYSIS ACCESS after 03/20/2017 Results * RHYTHM STRIP - SCAN (07/01/2017 7:50 AM) * TRANSFUSION SERVICE REPORT - SCAN (06/30/2017 5:43 PM) * Electrocardiogram, 12-lead (06/29/2017 7:51 AM) Specimen Performing Laboratory Pairy Narrative Ventricular Rate 61 BPM Atrial Rate 61 BPM P-R Interval 184 ms QRS Duration 82 ms Q-T Interval 452 ms QTC Calculation(Bazett) 455 ms P Crow[place] 23 degrees R Crowley 23 degrees T Crowley 71 degrees Normal sinus rhythm Normal ECG No previous ECGs available Confirmed by Camden López Alireaz ([id number]) on 06/29/2017 7:26:36 PM Procedure Note Interface, External Ris In - 06/29/2017 7:26 PM BINGO WORKER Ventricular Rate 61 BPM Atrial Rate 61 BPM P-R Interval 184 ms QRS Duration 82 ms Q-T Interval 452 ms QTC Calculation(Bazett) 455 ms P [place] 23 degrees R [place] 23 degrees T [place] 71 degrees Normal sinus rhythm Normal ECG No previous ECGs available Confirmed by Camden López Alireaz ([id number]) on 06/29/2017 7:26:36 PM * Potassium-Stat Lab (06/29/2017 6:46 AM) Component Value Ref Range Potassium 3.6 3.6 - 5.5 meq/L Specimen Performing Laboratory Blood, Arterial [address] [address] * Glucose-Stat Lab (06/29/2017 6:46 AM) Component Value Ref Range Glucose 92 70 - 110 mg/dL Specimen Performing Laboratory Blood, [address] [address] * Type and screen, automated (06/29/2017 6:46 AM) Component Value Ref Range ABO/RH AUTOMATED (BEAKER) B POSITIVE Ab Scrn NEGATIVE Specimen Performing Laboratory Blood [address] [address] * HGB/HCT (H&H)-Stat Lab (06/29/2017 6:46 AM) Component Value Ref Range Hemoglobin 10.7 (L) 12.0 - 15.0 g/dL Hematocrit 31.0 (L) 36.0 - 45.0 % Specimen Performing Laboratory Blood, Arterial [address] [address] * CBC with platelet count + automated diff (06/29/2017 6:46 AM) Component Value Ref Range WBC 5.8 3.5 - 10.5 K/L RBC 3.77 (L) 3.93 - 5.22 M/L Hemoglobin 11.4 11.2 - 15.7 GM/DL Hematocrit [...] % # Neutros 2.89 1.56 - 6.13 K/L # Lymphs 1.94 1.18 - 3.74 K/L # Monos 0.61 (H) 0.24 - 0.36 K/L # Eos 0.25 0.04 - 0.36 K/L # Baso 0.04 0.01 - 0.08 K/L Immature 0 0 - 1 % Granulocytes-Relative Specimen Performing Laboratory Blood [address] [address] * Prothrombin time/INR (06/29/2017 6:46 AM) Component Value Ref Range Protime 14.3 11.7 - 14.7 seconds INR 1.1 <=5.9 Specimen Performing Laboratory Blood [address] [address] Narrative RECOMMENDED COUMADIN/WARFARIN INR THERAPY RANGES STANDARD [...] + automated diff. Procedure Abnormality Status --------- ------ CBC with platelet count ...[[id number]]AbnormalFinal result Please view results for these tests [...] FOR DIALYSIS PATIENTS. Specimen Performing Laboratory Blood [address] [address] after 03/20/2017
--- OUTSIDE RECORDS SUMMARY | 2018-03-22 14:28 | XMS REPORT | Clinical Summary ---
Author Author FARHEEN [facility] Address Unknown Phone Unavailable Care Team Providers Care Animal Physiologist Name Role Phone PCP Unavailable Allergies No [...] ESRD (end stage renal disease) on dialysis ([facility]) 06/29/2017 Encounters Date Type Specialty Care Team Description 06/29/2017 Hospital Frank Dykes, ESRD (end stage renal Encounter MD disease) on dialysis ([facility]) 06/29/2017 Anesthesia Shahzad Slater MD Event 06/29/2017 [...] Taken Blood Pressure 104/57 06/29/2017 11:15 AM OCEANOGRAPHY PROFESSOR Pulse 81 06/29/2017 11:15 AM OCEANOGRAPHY PROFESSOR Temperature 36.4 C (97.5 F) 06/29/2017 9:55 AM OCEANOGRAPHY PROFESSOR Respiratory Rate 16 06/29/2017 11:15 AM OCEANOGRAPHY PROFESSOR Oxygen Saturation 94% 06/29/2017 11:30 AM OCEANOGRAPHY PROFESSOR Inhaled Oxygen - - Concentration Weight 76.7 kg (169 lb) 06/29/2017 9:55 AM OCEANOGRAPHY PROFESSOR Height 157.5 cm (5' 2") 06/29/2017 9:55 AM OCEANOGRAPHY PROFESSOR Body Mass Index 30.91 06/29/2017 9:55 AM OCEANOGRAPHY PROFESSOR Plan of Treatment Not on file Procedures Procedure Name Priority Date/Time Associated Diagnosis Comments INSERTION,DIALYSIS 06/29/2017 ESRD (end stage renal CATHETER 7:30 AM OCEANOGRAPHY PROFESSOR disease) (HCC) Case Notes LEFT REVISION TRANSLOCAT ION LEFT UPPER EXTREMITY DIALYSIS ACCESS after 03/20/2017 Results * RHYTHM STRIP - SCAN (07/01/2017 7:50 AM) * TRANSFUSION SERVICE REPORT - SCAN (06/30/2017 5:43 PM) * Electrocardiogram, 12-lead (06/29/2017 7:51 AM) Specimen Performing Laboratory Schrodinger Narrative Ventricular Rate 61 BPM Atrial Rate 61 BPM P-R Interval 184 ms QRS Duration 82 ms Q-T Interval 452 ms QTC Calculation(Bazett) 455 ms P [place] 23 degrees R [place] 23 degrees T [place] 71 degrees Normal sinus rhythm Normal ECG No previous ECGs available Confirmed by Camden López Alireaz ([id number]) on 06/29/2017 7:26:36 PM Procedure Note Interface, External Ris In - 06/29/2017 7:26 PM OCEANOGRAPHY PROFESSOR Ventricular Rate 61 BPM Atrial Rate 61 BPM P-R Interval 184 ms QRS Duration 82 ms Q-T Interval 452 ms QTC Calculation(Bazett) 455 ms P [place] 23 degrees R [place] 23 degrees T [place] 71 degrees Normal sinus rhythm Normal ECG No previous ECGs available Confirmed by Camden López Alireaz ([id number]) on 06/29/2017 7:26:36 PM * Potassium-Stat Lab (06/29/2017 6:46 AM) Component Value Ref Range Potassium 3.6 3.6 - 5.5 meq/L Specimen Performing Laboratory Blood, Arterial [address] [address] * Glucose-Stat Lab (06/29/2017 6:46 AM) Component Value Ref Range Glucose 92 70 - 110 mg/dL Specimen Performing Laboratory Blood, [address] [address] * Type and screen, automated (06/29/2017 6:46 AM) Component Value Ref Range ABO/RH AUTOMATED (BEAKER) B POSITIVE Ab Scrn NEGATIVE Specimen Performing Laboratory Blood [address] [address] * HGB/HCT (H&H)-Stat Lab (06/29/2017 6:46 AM) Component Value Ref Range Hemoglobin 10.7 (L) 12.0 - 15.0 g/dL Hematocrit 31.0 (L) 36.0 - 45.0 % Specimen Performing Laboratory Blood, Arterial [address] [address] * CBC with platelet count + automated [...] 1 % Granulocytes-Relative Specimen Performing Laboratory Blood [address] [address] * Prothrombin time/INR (06/29/2017 6:46 AM) Component Value Ref Range Protime 14.3 11.7 - 14.7 seconds INR 1.1 <=5.9 Specimen Performing Laboratory Blood [address] [address] Narrative RECOMMENDED COUMADIN/WARFARIN INR THERAPY RANGES STANDARD [...] Status --------- ------ CBC with platelet count ...[[id number]]AbnormalFinal result Please view results for these tests [...] FOR DIALYSIS PATIENTS. Specimen Performing Laboratory Blood [address] [address] after 03/20/2017
[2018-03-22] MEDS: GABAPENTIN 100 MG CAP PO SCH ×2 (14:35→21:34)
[2018-03-22] MEDS: SODIUM CHLORIDE 0.9% 1000ML 2,000 ML IV SCH (15:26)
[2018-03-22] MEDS ORDERED: ALBUMIN 25% 25GM 0.25 GM/ML BTL IV ONE ×2 (15:30)
[2018-03-22] MEDS ORDERED: ALBUMIN 25% 12.5GM 0.25 GM/ML BTL IV PRN (15:45)
[2018-03-22] MEDS ORDERED: LIDOCAINE/PRILOCAINE 2.5-2.5% KIT TOP ONE (15:45)
[2018-03-22 16:00] VITALS: BP 126/61
[2018-03-22] MEDS ORDERED: DEXTROSE 10% 1,000 ML IV SCH (17:00)
[2018-03-22 20:47] VITALS: BP 95/53
[2018-03-22] MEDS ORDERED: NON-FORMULARY MEDICATION (Pravastatin Sodium 20 MG) PO SCH (21:00)
[2018-03-22] MEDS: PRAVASTATIN 20 MG TAB PO SCH (21:34)
[2018-03-22 21:44] VITALS: BP 115/52
[2018-03-23] VITALS (8 sets, daily range): BP systolic 101–152; BP diastolic 52–81
[2018-03-23] MEDS: ALBUTEROL/IPRATROPIUM 3 ML NEB NEB SCH ×3 (07:00→20:00)
[2018-03-23] MEDS: INSULIN LISPRO 100 UNIT/1 ML 3ML VIAL SQ SCH ×4 (07:30→21:34)
[2018-03-23] MEDS: ALLOPURINOL 100 MG TAB PO SCH (08:30)
[2018-03-23] MEDS: PIPERACILLIN/TAZO 2.25 GM 50 ML IV SCH ×2 (08:30→17:02)
[2018-03-23] MEDS: GABAPENTIN 100 MG CAP PO SCH ×3 (08:30→20:57)
[2018-03-23] MEDS ORDERED: DIATRIZOATE MEGL/DIATRIZOA SOD 30 ML BTL PO ONE (09:20)
--- NOTE | 2018-03-23 11:47 | Diagnostic Imaging Report ---
EXAMINATION: CT of the abdomen and pelvis without contrast. TECHNIQUE: Spiral CT images of the abdomen and pelvis were performed from the lung bases to the lesser trochanters. No intravenous contrast was given due to low GFR. Coronal and sagittal reformatted images were obtained. COMPARISON: CT chest without contrast 03/21/2018 CLINICAL HISTORY:Abdominal pain, distention DISCUSSION: ABSENCE OF INTRAVENOUS CONTRAST DECREASES SENSITIVITY FOR DETECTION OF FOCAL LESIONS AND VASCULAR PATHOLOGY. ABDOMEN/PELVIS: LOWER THORAX: Small pleural effusions left greater than right with bilateral lower lobe atelectasis. Refer to CT chest 03/21/2018 for further details. HEPATOBILIARY:No focal hepatic lesion or intrahepatic biliary ductal dilatation. The gallbladder has been removed. Suspected peripherally radiopaque calculus in the remnant cystic duct. SPLEEN: No splenomegaly. PANCREAS: No focal masses or ductal dilatation. ADRENALS: No adrenal nodules. KIDNEYS/URETERS: Diminutive kidneys in keeping with end-stage renal disease. No hydronephrosis, calculi, or gross mass lesion. PELVIC ORGANS/BLADDER: The urinary bladder is incompletely distended but otherwise unremarkable. Uterus is not identified and has presumably been removed. No adnexal mass. PERITONEUM/RETROPERITONEUM: Small volume ascites in the perihepatic and perisplenic spaces, tracking along the paracolic gutters and into the pelvis, average internal attenuation 10-15 Hounsfield units. Diffuse omental thickening and soft tissue nodularity. LYMPH NODES: No pelvic sidewall, retroperitoneal, or mesenteric lymphadenopathy. Prominent pericardiophrenic lymph node is again noted. VESSELS: Limited evaluation without intravenous contrast. Extensive atherosclerotic calcification of the abdominal aorta, major visceral branches, and iliac arterial systems without aneurysmal dilatation. GI TRACT: The large bowel shows no evidence of distention or wall thickening. There is no small bowel dilatation to suggest obstruction. BONES AND SOFT TISSUES: Left lower quadrant abdominal wall hernia contains thickened omentum. Midline infraumbilical ventral hernia with similar, nodular omental contents. No additional focal soft tissue abnormalities. No osseous destructive lesions. Multilevel degenerative disc changes and facet arthropathy of the lumbar spine. Grade 1 anterolisthesis of L4 over L5. IMPRESSION: Small volume ascites with associated omental thickening and nodularity concerning for neoplastic infiltration. This may represent metastatic breast cancer in this patient with prior right mastectomy, as no adnexal mass or other suspected primary neoplasm is identified within the abdomen or pelvis. Surgical consultation is suggested. Status post cholecystectomy with suspected small calculus in the remnant cystic duct. No intrahepatic biliary ductal dilatation. Advanced atherosclerotic vascular disease with diminutive kidneys in keeping with end-stage renal disease. Signed by: Dr. Pablito Dickey M.D. on 03/23/2018 11:44 AM
[2018-03-23] MEDS ORDERED: SODIUM CHLORIDE 0.9% 1000ML 2,000 ML ONE (20:26)
[2018-03-23] MEDS: PRAVASTATIN 20 MG TAB PO SCH (20:40)
[2018-03-24] VITALS: BP 129/61
[2018-03-24] MEDS: ALBUTEROL/IPRATROPIUM 3 ML NEB NEB SCH ×5 (01:00→23:30)
[2018-03-24 04:00] VITALS: BP 138/65
[2018-03-24] MEDS: INSULIN LISPRO 100 UNIT/1 ML 3ML VIAL SQ SCH ×4 (07:30→20:49)
[2018-03-24 08:00] VITALS: BP 102/50
[2018-03-24] MEDS: GABAPENTIN 100 MG CAP PO SCH ×3 (08:00→20:48)
[2018-03-24] MEDS: ALLOPURINOL 100 MG TAB PO SCH (08:00)
[2018-03-24] MEDS: PIPERACILLIN/TAZO 2.25 GM 50 ML IV SCH ×2 (08:00→17:00)
[2018-03-24] MEDS: ACETAMINOPHEN 325 MG TAB PO PRN ×2 (08:30→22:45)
[2018-03-24] MEDS ORDERED: HEPARIN SOD (PORCINE) 1000 UNIT/ML SDV IV PRN (11:00)
[2018-03-24 11:53] VITALS: BP 98/49
[2018-03-24 16:00] VITALS: BP 122/58
[2018-03-24 20:00] VITALS: BP 140/64
[2018-03-24] MEDS: PRAVASTATIN 20 MG TAB PO SCH (20:48)
[2018-03-24] MEDS: CHOLESTYRAMINE 4 GM PACKET PO PRN (20:49)
[2018-03-25] VITALS (8 sets, daily range): BP systolic 104–133; BP diastolic 51–63
[2018-03-25] MEDS: ALBUTEROL/IPRATROPIUM 3 ML NEB NEB SCH ×3 (07:09→20:49)
[2018-03-25] MEDS: INSULIN LISPRO 100 UNIT/1 ML 3ML VIAL SQ SCH ×4 (07:30→21:00)
[2018-03-25] MEDS: ALLOPURINOL 100 MG TAB PO SCH (08:51)
[2018-03-25] MEDS: GABAPENTIN 100 MG CAP PO SCH ×3 (08:51→20:48)
[2018-03-25] MEDS: PIPERACILLIN/TAZO 2.25 GM 50 ML IV SCH ×2 (08:51→17:07)
[2018-03-25 11:55] LABS: BASOPHILS # (AUTO) 0.1 (0.0-0.1); BASOPHILS % 0.7 % (0.0-1.0); EOSINOPHILS # (AUTO) 0.2 (0.0-0.4); EOSINOPHILS % 2.2 % (0.0-6.0); HEMATOCRIT 37.2 % (34.2-44.1); HEMOGLOBIN 11.3 g/dL (12.0-16.0); LYMPHOCYTES # (AUTO) 0.8 (1.0-3.2); LYMPHOCYTES % 11.7 % (18.0-39.1); MEAN CORPUSCULAR HEMOGLOBIN 31.1 pg (28-32); MEAN CORPUSCULAR HGB CONC 30.4 g/dL (31-35); MEAN CORPUSCULAR VOLUME 102.5 fL (81-99); MONOCYTES # (AUTO) 0.6 (0.2-0.8); MONOCYTES % 8.8 % (4.4-11.3); NEUTROPHILS # (AUTO) 5.5 (2.1-6.9); NEUTROPHILS % 76.5 % (38.7-80.0); PLATELET COUNT 258 x10e3/uL (140-360); RED BLOOD COUNT 3.63 x10e6/uL (3.6-5.1); RED CELL DISTRIBUTION WIDTH 14.7 % (11.7-14.4)
[2018-03-25 12:10] LABS: ANION GAP 20.5 mmol/L (8-16); CALCIUM 9.3 mg/dL (8.4-10.2); CREATININE, SERUM 4.03 mg/dL (0.57-1.11); POTASSIUM 4.5 mmol/L (3.5-5.1)
[2018-03-25] MEDS: CHOLESTYRAMINE 4 GM PACKET PO PRN (15:32)
[2018-03-25] MEDS: PRAVASTATIN 20 MG TAB PO SCH (20:48)
[2018-03-25] MEDS: ACETAMINOPHEN 325 MG TAB PO PRN (20:48)
[2018-03-26] VITALS (8 sets, daily range): BP systolic 99–119; BP diastolic 44–64
[2018-03-26] MEDS: ALBUTEROL/IPRATROPIUM 3 ML NEB NEB SCH ×4 (01:11→19:15)
[2018-03-26] MEDS: INSULIN LISPRO 100 UNIT/1 ML 3ML VIAL SQ SCH ×4 (07:30→20:32)
[2018-03-26] MEDS: ALLOPURINOL 100 MG TAB PO SCH (09:39)
[2018-03-26] MEDS: GABAPENTIN 100 MG CAP PO SCH ×3 (09:39→20:35)
[2018-03-26] MEDS: ACETAMINOPHEN 325 MG TAB PO PRN (10:10)
[2018-03-26] MEDS: PIPERACILLIN/TAZO 2.25 GM 50 ML IV SCH ×2 (11:50→18:13)
[2018-03-26] MEDS: SIMETHICONE 80 MG CHEW PO SCH ×2 (12:41→18:13)
[2018-03-26] MEDS ORDERED: SODIUM CHLORIDE 0.9% 250ML 500 ML IV PRN (19:45)
[2018-03-26] MEDS ORDERED: MANNITOL 25% 12.5GM/50 ML VIAL IV PRN (19:45)
[2018-03-26] MEDS: PRAVASTATIN 20 MG TAB PO SCH (20:35)
[2018-03-27] VITALS (7 sets, daily range): BP systolic 104–137; BP diastolic 52–60
[2018-03-27] MEDS: SIMETHICONE 80 MG CHEW PO SCH ×4 (00:47→17:43)
[2018-03-27] MEDS: ALBUTEROL/IPRATROPIUM 3 ML NEB NEB SCH ×4 (01:05→19:15)
--- NOTE | 2018-03-27 05:32 | Consultation ---
CHIEF COMPLAINT: Abdominal distention and diarrhea. HISTORY OF PRESENT ILLNESS: The patient is an 82-year-old female admitted with cough and shortness of breath and was treated for pneumonia. Patient complained of increased abdominal distention during hospitalization with evidence of ascites. She stated that for the last several days she has been having loose stool, dark in color. The patient states she has no fevers or vomiting. PAST MEDICAL HISTORY: Positive for hypertension; diabetes; hyperlipidemia; end-stage renal disease, on hemodialysis; heart failure; reflux. SURGICAL HISTORY: Positive for hysterectomy, , cholecystectomy, hernia repair, right breast mastectomy for cancer, and AV fistula creation. ALLERGIES: SHE HAS NO DRUG ALLERGIES. SOCIAL HABITS: Patient denies history of smoking or alcohol abuse. REVIEW OF SYSTEMS: Mild shortness of breath. No chest pain. No chills. PHYSICAL EXAMINATION VITAL SIGNS: Stable, afebrile. GENERAL: She is awake and alert, in no apparent distress. HEENT: Sclerae are nonicteric. NECK: Supple. LUNGS: Clear. HEART: Regular rate and rhythm. ABDOMEN: Distended with ascites. There is no focal tenderness or mass. EXTREMITIES: No cyanosis or edema. LABORATORY DATA: White cell count is 7, hemoglobin 11, platelet count is 258. Her creatinine is 4. Lactic acid is 18. Liver function tests within normal limits with lipase of 28. CT of the abdomen shows evidence of ascites with omental thickening and nodularity concerning for neoplastic infiltration. ASSESSMENT: Patient with significant comorbidities, presenting with abdominal ascites, concerning for metastatic cancer. PLAN: Discussed diagnostic laparoscopy for omental biopsy under anesthesia with all attendant risks were discussed with the patient in detail. Job#: [id number]
[2018-03-27 05:37] LABS: BASOPHILS % 0.4 % (0.0-1.0); EOSINOPHILS # (AUTO) 0.2 (0.0-0.4); EOSINOPHILS % 2.8 % (0.0-6.0); HEMATOCRIT 33.4 % (34.2-44.1); HEMOGLOBIN 10.3 g/dL (12.0-16.0); LYMPHOCYTES # (AUTO) 0.8 (1.0-3.2); LYMPHOCYTES % 12.1 % (18.0-39.1); MEAN CORPUSCULAR HEMOGLOBIN 31.1 pg (28-32); MEAN CORPUSCULAR HGB CONC 30.8 g/dL (31-35); MEAN CORPUSCULAR VOLUME 100.9 fL (81-99); MONOCYTES # (AUTO) 0.6 (0.2-0.8); MONOCYTES % 9.1 % (4.4-11.3); NEUTROPHILS # (AUTO) 5.1 (2.1-6.9); NEUTROPHILS % 75.3 % (38.7-80.0); PLATELET COUNT 221 x10e3/uL (140-360); RED BLOOD COUNT 3.31 x10e6/uL (3.6-5.1); RED CELL DISTRIBUTION WIDTH 14.6 % (11.7-14.4)
[2018-03-27 06:22] LABS: FERRITIN 741.04 ng/mL (4.63-204.00)
[2018-03-27] MEDS: INSULIN LISPRO 100 UNIT/1 ML 3ML VIAL SQ SCH ×4 (07:30→21:00)
[2018-03-27] MEDS: PIPERACILLIN/TAZO 2.25 GM 50 ML IV SCH ×2 (09:04→17:43)
[2018-03-27] MEDS: GABAPENTIN 100 MG CAP PO SCH ×3 (09:41→20:16)
[2018-03-27] MEDS: ALLOPURINOL 100 MG TAB PO SCH (09:41)
[2018-03-27] MEDS ORDERED: ONDANSETRON HCL INJ 2 MG/ML VIAL IV PRN (10:15)
[2018-03-27] MEDS ORDERED: DEXTROSE 50% SYRINGE 50 ML IV PRN (10:15)
[2018-03-27] MEDS ORDERED: ACETAMINOPHEN/CODEINE 300MG - 30MG TAB PO PRN (18:15)
[2018-03-27] MEDS ORDERED: LOPERAMIDE HCL 2 MG CAP PO PRN (18:15)
[2018-03-27] MEDS: PRAVASTATIN 20 MG TAB PO SCH (20:16)
[2018-03-28] VITALS (8 sets, daily range): BP systolic 99–131; BP diastolic 45–60
[2018-03-28] MEDS: SIMETHICONE 80 MG CHEW PO SCH ×4 (00:51→16:00)
[2018-03-28 05:50] LABS: BASOPHILS % 0.5 % (0.0-1.0); EOSINOPHILS # (AUTO) 0.2 (0.0-0.4); EOSINOPHILS % 2.9 % (0.0-6.0); HEMATOCRIT 34.3 % (34.2-44.1); HEMOGLOBIN 10.6 g/dL (12.0-16.0); LYMPHOCYTES # (AUTO) 0.9 (1.0-3.2); LYMPHOCYTES % 12.1 % (18.0-39.1); MEAN CORPUSCULAR HEMOGLOBIN 31.2 pg (28-32); MEAN CORPUSCULAR HGB CONC 30.9 g/dL (31-35); MEAN CORPUSCULAR VOLUME 100.9 fL (81-99); MONOCYTES # (AUTO) 0.6 (0.2-0.8); MONOCYTES % 7.8 % (4.4-11.3); NEUTROPHILS # (AUTO) 5.6 (2.1-6.9); NEUTROPHILS % 76.3 % (38.7-80.0); PLATELET COUNT 227 x10e3/uL (140-360); RED CELL DISTRIBUTION WIDTH 14.6 % (11.7-14.4)
[2018-03-28 06:07] LABS: ANION GAP 18.2 mmol/L (8-16); CALCIUM 8.9 mg/dL (8.4-10.2); CREATININE, SERUM 5.54 mg/dL (0.57-1.11); POTASSIUM 4.2 mmol/L (3.5-5.1)
[2018-03-28] MEDS: ALBUTEROL/IPRATROPIUM 3 ML NEB NEB SCH ×4 (07:00→20:10)
[2018-03-28] MEDS: INSULIN LISPRO 100 UNIT/1 ML 3ML VIAL SQ SCH ×4 (07:30→21:07)
[2018-03-28] MEDS ORDERED: SODIUM CHLORIDE 0.9% 250ML 250 ML ONE (08:20)
[2018-03-28] MEDS: GABAPENTIN 100 MG CAP PO SCH ×3 (08:30→20:55)
[2018-03-28] MEDS: ALLOPURINOL 100 MG TAB PO SCH (08:30)
[2018-03-28] MEDS: FOLIC ACID 1 MG TAB PO SCH (08:30)
[2018-03-28] MEDS: PIPERACILLIN/TAZO 2.25 GM 50 ML IV SCH ×2 (08:30→16:00)
[2018-03-28] MEDS: PRAVASTATIN 20 MG TAB PO SCH (20:59)
[2018-03-29] VITALS (8 sets, daily range): BP systolic 104–126; BP diastolic 51–68
[2018-03-29] MEDS: SIMETHICONE 80 MG CHEW PO SCH ×5 (00:01→21:43)
[2018-03-29] MEDS: ALBUTEROL/IPRATROPIUM 3 ML NEB NEB SCH ×4 (00:15→19:15)
[2018-03-29] MEDS: INSULIN LISPRO 100 UNIT/1 ML 3ML VIAL SQ SCH ×4 (07:30→21:00)
[2018-03-29] MEDS: FOLIC ACID 1 MG TAB PO SCH (08:08)
[2018-03-29] MEDS: GABAPENTIN 100 MG CAP PO SCH ×3 (08:08→21:43)
[2018-03-29] MEDS: ALLOPURINOL 100 MG TAB PO SCH (08:08)
[2018-03-29] MEDS: SODIUM CHLORIDE 0.9% 1000ML 2,000 ML IV SCH (12:41)
--- NOTE | 2018-03-29 13:19 | Consultation ---
DATE OF CONSULTATION: March 29, 2018 REASON FOR CONSULTATION: Management of kidney failure. HISTORY OF PRESENT ILLNESS: This 82-year-old patient is known to our nephrology service. Has type-2 diabetes with end-organ damage leading to diabetic retinopathy and neuropathy, congestive heart failure, diastolic dysfunction, left ventricular hypertrophy, end-stage renal disease as well as diabetic complications of chronic kidney disease, now end stage on dialysis. Other issues are history of gout, peripheral neuropathy, history of urinary tract infection, history of C. diff colitis in the recent past, anemia requiring packed RBC transfusion, history of AV fistula creation, history of breast lumpectomy for cancer without chemotherapy. Had deep venous thrombosis and PE after surgery. History of prior hysterectomy, cholecystectomy, hernia repair and history of hypertension. Currently awake and alert. Denies nausea, vomiting, shortness of breath or abdominal pain. Workup included CT abdomen and pelvis. Please see official report. Shows advanced atherosclerotic changes and small volume ascites with omental thickening. This may represent metastatic breast cancer in a patient with prior right mastectomy. She also had a CT chest on March 21, 2018. It showed left thyroid lobe 3-cm nodule, enlarged pulmonary artery suggestive of pulmonary hypertension, mild ascending aortic ectasia measuring 4 cm. Current labs show white count 7.3, hemoglobin 10.5 with potassium level 4.2. Sodium 138, bicarb 24 with BUN and creatinine 26 and 5.5 respectively. SOCIAL HISTORY: Patient does not smoke or drink. ALLERGIES: NO APPARENT DRUG ALLERGIES. CURRENT MEDICATIONS: Patient is on: 1. Pravastatin 20 mg once a day. 2. Simethicone 80 mg p.o. q.6. 3. Guaifenesin p.r.n. cough. 4. Gabapentin 100 mg p.o. t.i.d. 5. Zyloprim 100 mg p.o. daily. 6. Cholestyramine. 7. Piperacillin and tazobactam 2.25 grams IV q.12. 8. Tylenol p.r.n. 9. Albuterol and Atrovent nebulizer p.r.n. 10. Folic acid 1 mg daily. 11. Insulin. 12. Heparin subcutaneously. PHYSICAL EXAMINATION: GENERAL: Awake, alert, lying supine. No apparent distress. VITALS: Blood pressure 118/56. Pulse rate 87. Afebrile. Respiratory rate 17. HEAD AND NECK: Corneas clear. Oral mucosa dry. Neck veins are flat. LUNGS: Relatively clear. HEART: S1, S2 audible. ABDOMEN: Soft. Nontender. EXTREMITIES: Lower extremities with no edema. Left upper arm AV fistula with good thrill and bruit. IMPRESSION AND PLAN: End-stage renal disease. Abnormal CT scan of the abdomen. Scheduled for laparotomy. I will schedule for dialysis. Place on a renal diet. Fluid restriction. Potassium restriction. Blood pressure control. Will obtain her ABDOUL dose from the dialysis unit. Labs noted. Dialysis nurse on standby. Job#: [id number]
[2018-03-29] MEDS: ACETAMINOPHEN 325 MG TAB PO PRN (13:29)
[2018-03-29] MEDS: PRAVASTATIN 20 MG TAB PO SCH (21:43)
[2018-03-30] VITALS (8 sets, daily range): BP systolic 98–152; BP diastolic 47–87
[2018-03-30] MEDS: ALBUTEROL/IPRATROPIUM 3 ML NEB NEB SCH ×4 (00:30→19:10)
[2018-03-30] MEDS: SIMETHICONE 80 MG CHEW PO SCH ×5 (06:00→23:20)
[2018-03-30] MEDS: INSULIN LISPRO 100 UNIT/1 ML 3ML VIAL SQ SCH ×4 (07:30→21:00)
[2018-03-30] MEDS: GABAPENTIN 100 MG CAP PO SCH ×3 (09:00→21:27)
[2018-03-30] MEDS ORDERED: DIATRIZOATE MEGL/DIATRIZOA SOD 30 ML BTL PO ONE (10:44)
--- NOTE | 2018-03-30 16:16 | Diagnostic Imaging Report ---
ADDENDUM #1 Addendum: Active CT dose reduction parameters were utilized. Signed by: Dr. Jamie Boykin DO on 06/13/2018 10:29 AM ORIGINAL REPORT Exam: CT-guided peritoneal biopsy dated 03/30/2018 History: Patient with a history of breast cancer presents with ascites and evidence of peritoneal carcinomatosis with omental caking. DLP: 1982.27 mGy-cm Technique: Multiple axial scans were performed through the abdomen following oral administration of a double dose of Gastrografin intermixed with water. Comparison: CT scan of the abdomen and pelvis dated 03/23/2018 Findings: Peritoneal thickening in the right lower pelvis was localized. A marker was placed. Core biopsies were performed after local anesthesia and sterile preparation. A 16-gauge guiding needle was placed into the edge of the peritoneal thickening. Through this 4 core biopsies utilizing 18-gauge core biopsy gun with a 2 cm throw. Patient tolerated the procedure adequately. Post procedure scan shows no evidence of free air or hemorrhage. Impression: Successful CT-guided peritoneal biopsy. Signed by: Dr. Jamie Boykin DO on 03/30/2018 4:13 PM
[2018-03-30] MEDS: ALLOPURINOL 100 MG TAB PO SCH (17:42)
[2018-03-30] MEDS: FOLIC ACID 1 MG TAB PO SCH (17:42)
[2018-03-30] MEDS: PRAVASTATIN 20 MG TAB PO SCH (21:27)
[2018-03-31] VITALS (9 sets, daily range): BP systolic 89–125; BP diastolic 53–71
[2018-03-31] MEDS: ALBUTEROL/IPRATROPIUM 3 ML NEB NEB SCH ×4 (00:10→19:38)
[2018-03-31] MEDS: SIMETHICONE 80 MG CHEW PO SCH ×4 (05:38→23:18)
[2018-03-31] MEDS: INSULIN LISPRO 100 UNIT/1 ML 3ML VIAL SQ SCH ×4 (07:30→21:00)
[2018-03-31] MEDS: GABAPENTIN 100 MG CAP PO SCH ×3 (08:29→21:18)
[2018-03-31] MEDS: FOLIC ACID 1 MG TAB PO SCH (15:11)
[2018-03-31] MEDS: ALLOPURINOL 100 MG TAB PO SCH (15:11)
[2018-03-31] MEDS: PRAVASTATIN 20 MG TAB PO SCH (21:18)
[2018-04-01] MEDS: ALBUTEROL/IPRATROPIUM 3 ML NEB NEB SCH ×4 (01:30→20:30)
[2018-04-01 04:00] VITALS: BP 144/65
[2018-04-01] MEDS: SIMETHICONE 80 MG CHEW PO SCH ×3 (05:34→18:00)
[2018-04-01] MEDS: INSULIN LISPRO 100 UNIT/1 ML 3ML VIAL SQ SCH ×4 (07:30→22:09)
[2018-04-01] MEDS: ALLOPURINOL 100 MG TAB PO SCH (08:30)
[2018-04-01] MEDS: GABAPENTIN 100 MG CAP PO SCH ×3 (08:30→22:04)
[2018-04-01] MEDS: FOLIC ACID 1 MG TAB PO SCH (08:30)
[2018-04-01 08:52] VITALS: BP 95/48
[2018-04-01] MEDS ORDERED: FLUCONAZOLE 200 MG/100 ML 100 ML IV ONE (09:15)
[2018-04-01] MEDS ORDERED: HYDROMORPHONE HCL 2 MG TAB PO PRN (09:15)
[2018-04-01 10:36] LABS: BASOPHILS % 0.5 % (0.0-1.0); EOSINOPHILS # (AUTO) 0.1 (0.0-0.4); EOSINOPHILS % 1.8 % (0.0-6.0); HEMATOCRIT 31.8 % (34.2-44.1); HEMOGLOBIN 9.9 g/dL (12.0-16.0); LYMPHOCYTES # (AUTO) 0.8 (1.0-3.2); MEAN CORPUSCULAR HEMOGLOBIN 31.3 pg (28-32); MEAN CORPUSCULAR HGB CONC 31.1 g/dL (31-35); MEAN CORPUSCULAR VOLUME 100.6 fL (81-99); MONOCYTES # (AUTO) 0.6 (0.2-0.8); MONOCYTES % 8.9 % (4.4-11.3); NEUTROPHILS % 76.5 % (38.7-80.0); PLATELET COUNT 209 x10e3/uL (140-360); RED BLOOD COUNT 3.16 x10e6/uL (3.6-5.1); RED CELL DISTRIBUTION WIDTH 14.6 % (11.7-14.4)
[2018-04-01 10:55] LABS: ANION GAP 15.2 mmol/L (8-16); CALCIUM 8.6 mg/dL (8.4-10.2); CREATININE, SERUM 5.23 mg/dL (0.57-1.11); POTASSIUM 4.2 mmol/L (3.5-5.1)
[2018-04-01] MEDS: METOCLOPRAMIDE HCL 10 MG/2ML VIAL IV SCH ×3 (11:30→22:04)
[2018-04-01 11:53] VITALS: BP 114/56
[2018-04-01 16:43] VITALS: BP 104/55
[2018-04-01] MEDS: ACETAMINOPHEN 325 MG TAB PO PRN ×2 (18:30→22:37)
[2018-04-01 20:00] VITALS: BP 110/63
[2018-04-01 21:00] VITALS: BP 110/63
[2018-04-01] MEDS: PRAVASTATIN 20 MG TAB PO SCH (22:04)
[2018-04-02] VITALS (7 sets, daily range): BP systolic 94–140; BP diastolic 48–82
[2018-04-02] MEDS: SIMETHICONE 80 MG CHEW PO SCH ×5 (00:07→23:35)
[2018-04-02] MEDS: ALBUTEROL/IPRATROPIUM 3 ML NEB NEB SCH ×4 (01:45→19:45)
[2018-04-02] MEDS: INSULIN LISPRO 100 UNIT/1 ML 3ML VIAL SQ SCH ×4 (08:00→20:32)
[2018-04-02] MEDS: METOCLOPRAMIDE HCL 10 MG/2ML VIAL IV SCH ×4 (08:00→20:32)
[2018-04-02] MEDS: FLUCONAZOLE 100 MG/NS 50 ML 50 ML IV SCH (08:00)
[2018-04-02] MEDS: ALLOPURINOL 100 MG TAB PO SCH (09:00)
[2018-04-02] MEDS: FOLIC ACID 1 MG TAB PO SCH (09:00)
[2018-04-02] MEDS: GABAPENTIN 100 MG CAP PO SCH ×3 (09:00→20:32)
[2018-04-02] MEDS: PRAVASTATIN 20 MG TAB PO SCH (20:32)
[2018-04-02] MEDS: ACETAMINOPHEN 325 MG TAB PO PRN (20:32)
[2018-04-03] VITALS (7 sets, daily range): BP systolic 97–119; BP diastolic 46–57
[2018-04-03] MEDS: ALBUTEROL/IPRATROPIUM 3 ML NEB NEB SCH ×4 (02:00→19:35)
[2018-04-03] MEDS: SIMETHICONE 80 MG CHEW PO SCH ×3 (06:34→17:16)
[2018-04-03] MEDS: FLUCONAZOLE 100 MG/NS 50 ML 50 ML IV SCH (06:34)
[2018-04-03] MEDS: INSULIN LISPRO 100 UNIT/1 ML 3ML VIAL SQ SCH ×4 (07:30→20:48)
[2018-04-03] MEDS: GABAPENTIN 100 MG CAP PO SCH ×3 (08:00→20:47)
[2018-04-03] MEDS: METOCLOPRAMIDE HCL 10 MG/2ML VIAL IV SCH ×4 (08:00→20:47)
[2018-04-03] MEDS: ALLOPURINOL 100 MG TAB PO SCH (08:00)
[2018-04-03] MEDS: FOLIC ACID 1 MG TAB PO SCH (08:00)
[2018-04-03] MEDS: PRAVASTATIN 20 MG TAB PO SCH (20:47)
[2018-04-03] MEDS: ACETAMINOPHEN 325 MG TAB PO PRN (22:26)
[2018-04-04] VITALS (9 sets, daily range): BP systolic 98–134; BP diastolic 55–60
[2018-04-04] MEDS: SIMETHICONE 80 MG CHEW PO SCH ×4 (00:23→17:01)
[2018-04-04] MEDS: ALBUTEROL/IPRATROPIUM 3 ML NEB NEB SCH ×4 (02:00→20:00)
[2018-04-04] MEDS: INSULIN LISPRO 100 UNIT/1 ML 3ML VIAL SQ SCH ×4 (07:30→21:00)
[2018-04-04] MEDS: FLUCONAZOLE 100 MG/NS 50 ML 50 ML IV SCH (08:32)
[2018-04-04] MEDS: GABAPENTIN 100 MG CAP PO SCH ×3 (09:06→21:12)
[2018-04-04] MEDS: FOLIC ACID 1 MG TAB PO SCH (09:06)
[2018-04-04] MEDS: METOCLOPRAMIDE HCL 10 MG/2ML VIAL IV SCH ×4 (09:06→21:12)
[2018-04-04] MEDS: ALLOPURINOL 100 MG TAB PO SCH (09:06)
[2018-04-04] MEDS: PRAVASTATIN 20 MG TAB PO SCH (21:12)
[2018-04-04] MEDS: ACETAMINOPHEN 325 MG TAB PO PRN (22:38)
[2018-04-05] VITALS (7 sets, daily range): BP systolic 92–122; BP diastolic 46–53
[2018-04-05] MEDS: SIMETHICONE 80 MG CHEW PO SCH ×4 (00:09→17:16)
[2018-04-05] MEDS: ALBUTEROL/IPRATROPIUM 3 ML NEB NEB SCH ×4 (01:00→19:10)
[2018-04-05 06:57] LABS: ALBUMIN 2.4 g/dL (3.5-5.0); ALBUMIN/GLOBULIN RATIO 0.7 (0.8-2.0); ANION GAP 15.8 mmol/L (8-16); CALCIUM 8.4 mg/dL (8.4-10.2); CREATININE, SERUM 6.79 mg/dL (0.57-1.11); POTASSIUM 4.8 mmol/L (3.5-5.1)
[2018-04-05] MEDS: INSULIN LISPRO 100 UNIT/1 ML 3ML VIAL SQ SCH ×4 (07:30→20:45)
[2018-04-05] MEDS: METOCLOPRAMIDE HCL 10 MG/2ML VIAL IV SCH ×4 (08:02→20:45)
[2018-04-05] MEDS: GABAPENTIN 100 MG CAP PO SCH ×3 (08:02→20:45)
[2018-04-05] MEDS: ALLOPURINOL 100 MG TAB PO SCH (14:40)
[2018-04-05] MEDS: FOLIC ACID 1 MG TAB PO SCH (14:40)
[2018-04-05] MEDS: FLUCONAZOLE 100 MG/NS 50 ML 50 ML IV SCH (14:40)
[2018-04-05] MEDS: PRAVASTATIN 20 MG TAB PO SCH (20:45)
[2018-04-06] VITALS: BP 89/53
[2018-04-06] MEDS: ALBUTEROL/IPRATROPIUM 3 ML NEB NEB SCH ×4 (02:15→19:15)
[2018-04-06 04:00] VITALS: BP 100/49
[2018-04-06] MEDS: SIMETHICONE 80 MG CHEW PO SCH ×5 (05:11→23:28)
[2018-04-06] MEDS: INSULIN LISPRO 100 UNIT/1 ML 3ML VIAL SQ SCH ×4 (07:30→20:50)
[2018-04-06 08:49] VITALS: BP 100/51
[2018-04-06] MEDS: FLUCONAZOLE 100 MG/NS 50 ML 50 ML IV SCH (09:00)
[2018-04-06] MEDS: GABAPENTIN 100 MG CAP PO SCH ×3 (09:00→20:56)
[2018-04-06] MEDS: ALLOPURINOL 100 MG TAB PO SCH (09:00)
[2018-04-06] MEDS: FOLIC ACID 1 MG TAB PO SCH (09:00)
[2018-04-06] MEDS: METOCLOPRAMIDE HCL 10 MG TAB PO SCH ×3 (11:30→20:55)
[2018-04-06 12:00] VITALS: BP 96/54
[2018-04-06 16:00] VITALS: BP 98/51
[2018-04-06] MEDS: ACETAMINOPHEN 325 MG TAB PO PRN (16:51)
[2018-04-06 20:00] VITALS: BP 94/51
[2018-04-06] MEDS: PRAVASTATIN 20 MG TAB PO SCH (20:55)
[2018-04-07] VITALS: BP 116/56
[2018-04-07] MEDS: ALBUTEROL/IPRATROPIUM 3 ML NEB NEB SCH ×4 (00:30→19:15)
[2018-04-07 04:00] VITALS: BP 144/63
[2018-04-07] MEDS: SIMETHICONE 80 MG CHEW PO SCH ×3 (05:20→18:00)
[2018-04-07] MEDS: FLUCONAZOLE 100 MG/NS 50 ML 50 ML IV SCH (06:18)
[2018-04-07] MEDS: INSULIN LISPRO 100 UNIT/1 ML 3ML VIAL SQ SCH ×4 (07:30→20:27)
[2018-04-07 08:00] VITALS: BP 95/51
[2018-04-07] MEDS: ALLOPURINOL 100 MG TAB PO SCH (08:00)
[2018-04-07] MEDS: FOLIC ACID 1 MG TAB PO SCH (08:00)
[2018-04-07] MEDS: METOCLOPRAMIDE HCL 10 MG TAB PO SCH ×4 (08:00→20:26)
[2018-04-07] MEDS: GABAPENTIN 100 MG CAP PO SCH (08:00)
[2018-04-07 12:00] VITALS: BP 105/44
[2018-04-07 16:00] VITALS: BP 143/38
[2018-04-07] MEDS ORDERED: GABAPENTIN 100 MG CAP PO PRN (18:15)
[2018-04-07] MEDS: ACETAMINOPHEN 325 MG TAB PO PRN (19:44)
[2018-04-07 20:00] VITALS: BP_SYST 109; BP_DIAS 54; BP_DIAS 58
[2018-04-07] MEDS: PRAVASTATIN 20 MG TAB PO SCH (20:26)
[2018-04-08] MEDS: SIMETHICONE 80 MG CHEW PO SCH ×4 (00:36→17:30)
[2018-04-08 04:00] VITALS: BP 120/57
[2018-04-08] MEDS: FLUCONAZOLE 100 MG/NS 50 ML 50 ML IV SCH (06:14)
[2018-04-08] MEDS: ALBUTEROL/IPRATROPIUM 3 ML NEB NEB SCH ×3 (07:00→13:00)
[2018-04-08 07:30] VITALS: BP 97/52
[2018-04-08] MEDS: INSULIN LISPRO 100 UNIT/1 ML 3ML VIAL SQ SCH ×3 (07:30→17:30)
[2018-04-08] MEDS: ALLOPURINOL 100 MG TAB PO SCH (08:26)
[2018-04-08] MEDS: METOCLOPRAMIDE HCL 10 MG TAB PO SCH ×3 (08:26→16:18)
[2018-04-08] MEDS: FOLIC ACID 1 MG TAB PO SCH (08:26)
[2018-04-08] MEDS ORDERED: HYDROMORPHONE HCL 2 MG TAB PO PRN (10:00)
[2018-04-08 11:16] VITALS: BP 108/59
[2018-04-08] MEDS: MIDODRINE 2.5 MG TAB PO SCH ×2 (12:07→16:18)
[2018-04-08] MEDS ORDERED: ONDANSETRON HCL 4 MG ORAL DISINTEGRATING TAB PO PRN (15:00)
[2018-04-08 16:06] VITALS: BP 121/57
--- NOTE | 2018-06-12 23:55 | Discharge Summary ---
FINAL DIAGNOSES 1. Peritoneal carcinomatosis status post computerized tomography-guided omentum mass cold biopsy. 2. End-stage renal disease, on dialysis. 3. Abdominal pain secondary to most likely above. 4. Diabetes, on insulin therapy, associated with episodic hypoglycemia. 5. Volume overload secondary to [id number] diastolic dysfunction, congestive heart failure, and also from dialysis for end-stage renal disease. SUMMARY: Patient is an 82-year-old female with history of right breast ductal carcinoma in situ, status post right mastectomy. She also has history of PE; hysterectomy; ; cholecystectomy; end-stage renal disease, on dialysis, came in with abdominal pain associated with subsequently found abdominal fluid retention. The patient underwent multiple workup done. The patient found to have omental mesenteric thickening. The patient has most likely malignant pictures, therefore workup pursued with consultation from Dr. Reji Parisi. The patient has elevated tumor marker. Recommendation for the patient to follow up with exploratory laparotomy. The patient subsequently underwent exploration done by Dr. Pablito Baker. The patient is status post omental biopsy, positive for HEAD CHARRER malignancy and awaiting for the final pathology. 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 Patient did not want any aggressive measure per consultation from the oncologist. Pain control and continue with dialysis. Patient wanted skilled for continue with physical therapy and pain management as an outpatient basis at the lower level of care. Arrangement was made and the patient was subsequently accepted. Discussed with the patient's family at length regarding the findings and that the patient will need to follow up for any further recommendation from the oncologist. The patient was stable and subsequently discharged from the hospital to skilled care and continue with outpatient followup as instructed. Job#: [id number] CF
== END 2018-04-08 18:57 | DRG 356 ==
LOC: ER 13:41 → ERHOLD 20:47 → IMCU 22:28 → OBSVTOIN 03-22 14:16 → MED/SURG3 03-22 16:15 → IMCU 03-22 16:17 → MED/SURG3 03-22 16:51 → IMCU 03-22 18:25 → MED/SURG3 03-23 00:23
PROVIDERS: ADMIT Internal Medicine; ATTEND Internal Medicine
PROC: 5A1D70Z Performance of Urinary Filtration, Intermittent, Less than 6 Hours Per Day (ICD-10-PCS; principal; 2018-03-22)
PROC: 0DBW3ZZ Excision of Peritoneum, Percutaneous Approach (ICD-10-PCS; 2018-03-30)
DX: C78.6 Secondary malignant neoplasm of retroperitoneum and peritoneum (principal); J15.9 Unspecified bacterial pneumonia; N18.6 End stage renal disease; R18.8 Other ascites; E87.2 Acidosis; I13.2 Hypertensive heart and chronic kidney disease with heart failure and with stage 5 chronic kidney disease, or end stage renal disease; I50.30 Unspecified diastolic (congestive) heart failure; E87.70 Fluid overload, unspecified; J20.9 Acute bronchitis, unspecified; E11.22 Type 2 diabetes mellitus with diabetic chronic kidney disease; Z99.2 Dependence on renal dialysis; R55 Syncope and collapse; E78.5 Hyperlipidemia, unspecified; E04.1 Nontoxic single thyroid nodule; E11.319 Type 2 diabetes mellitus with unspecified diabetic retinopathy without macular edema; E11.42 Type 2 diabetes mellitus with diabetic polyneuropathy; Z87.440 Personal history of urinary (tract) infections; Z86.718 Personal history of other venous thrombosis and embolism; Z86.711 Personal history of pulmonary embolism; E11.649 Type 2 diabetes mellitus with hypoglycemia without coma; Z85.3 Personal history of malignant neoplasm of breast; Z79.4 Long term (current) use of insulin; D63.1 Anemia in chronic kidney disease
CPT/HCPCS: 36415; 49180; 71045; 71250; 74176; 74470; 77012; 80048; 80053; 81001; 82270; 82378; 82550; 82553; 82607; 82728; 82746; 82948; 83540; 83605; 83880; 84100; 84466; 84484; 85025; 85610; 85730; 86300; 86301; 86304; 86704; 86706; 87040; 87070; 87086; 87205; 87340; 87400; 87493; 88305; 88342; 90962; 93005; 94640; 97139; 99284; G0378; J1450; J1644; J2150; J2405; J2543; J2765; J3370; J7030; J7050; J7799; P9047

== ENCOUNTER 2018-04-27 22:04 | Emergency (ER) | payer MEDICARE ==
[~2018-04-27] VITALS: Ht 157.5 cm; Wt 64.4 kg
--- OUTSIDE RECORDS SUMMARY | 2018-04-27 22:06 | XMS REPORT | Clinical Summary ---
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 Active furosemide (LASIX) 20 MG Take 20 mg by 0 tablet mouth 2 (two) times daily. Active allopurinol (ZYLOPRIM) Take 100 mg 0 100 MG tablet by mouth daily. Active carvedilol (COREG) 12.5 Take 12.5 mg 0 MG tablet by mouth 2 (two) times daily with breakfast and dinner. Active gabapentin (NEURONTIN) Take 100 mg 0 100 MG capsule by mouth 3 (three) times daily. Active pravastatin (PRAVACHOL) Take 10 mg by 0 10 MG tablet mouth daily. Active insulin glargine (LANTUS) Inject 0 100 unit/mL injection subcutaneousl y nightly Use as directed . 06/29/2018 Active traMADol (ULTRAM) 50 mg Take 1 tablet 20 tablet 0 tablet (50 mg total) 8 by mouth every 6 (six) hours as needed for Pain. Max Daily Amount: 200 mg Active Problems Problem Noted Date ESRD (end stage renal disease) on dialysis 06/29/2017 Encounters Care Team Description Date Type Specialty Frank Dykes MD INSERTION,DIALYSIS CATHETER 06/29/2017 Surgery Shahzad Slater MD 06/29/2017 Anesthesia Event Frank Dykes MD ESRD (end stage renal disease) on dialysis (HCC) 06/29/2017 Hospital Encounter Rylee Marinelli RN 06/28/2017 Orders Only Transplant after 04/26/2017 Social History Date Tobacco Use Types Packs/Day Years Used Never Smoker Smokeless Tobacco: Never Used Alcohol Use Drinks/Week oz/Week Comments No Sex Assigned at Date Recorded Not on file Industry Job Start Date Occupation Not on file Not on file Not on file Travel End Travel History Travel Start No recent travel history available. Last Filed Vital Signs Time Taken Vital Sign Reading 06/29/2017 11:15 AM [employer] Blood Pressure 104/57 06/29/2017 11:15 AM [employer] Pulse 81 06/29/2017 9:55 AM [employer] Temperature 36.4 C (97.5 F) 06/29/2017 11:15 AM [employer] Respiratory Rate 16 06/29/2017 11:30 AM [employer] Oxygen Saturation 94% - Inhaled Oxygen - Concentration 06/29/2017 9:55 AM [employer] Weight 76.7 kg (169 lb) 06/29/2017 9:55 AM [employer] Height 157.5 cm (5' 2") 06/29/2017 9:55 AM [employer] Body Mass Index 30.91 Plan of Treatment Not on file Procedures Comments Procedure Name Priority Date/Time Associated Diagnosis RHYTHM STRIP - SCAN 07/01/2017 7:50 AM [employer] TRANSFUSION SERVICE 06/30/2017 REPORT - SCAN 5:43 PM [employer] ECG 12-LEAD Routine 06/29/2017 7:51 AM [employer] INSERTION,DIALYSIS 06/29/2017 ESRD (end stage renal CATHETER 7:30 AM [employer] disease) (HCC) Case Notes LEFT REVISION TRANSLOCAT ION LEFT UPPER EXTREMITY DIALYSIS ACCESS CBC W/PLT COUNT & AUTO Routine 06/29/2017 DIFFERENTIAL 6:46 AM [employer] TYPE AND SCREEN, Routine 06/29/2017 AUTOMATED 6:46 AM [employer] PROTHROMBIN TIME/INR Routine 06/29/2017 6:46 AM [employer] CBC W/PLT COUNT & AUTO Routine 06/29/2017 DIFFERENTIAL 6:46 AM [employer] BASIC METABOLIC PANEL (7) Routine 06/29/2017 6:46 AM [employer] HGB/HCT (H&H) - STAT LAB STAT 06/29/2017 6:46 AM [employer] POTASSIUM-STAT LAB STAT 06/29/2017 6:46 AM [employer] GLUCOSE-STAT LAB STAT 06/29/2017 6:46 AM [employer] after 04/26/2017 Results * RHYTHM STRIP - SCAN (07/01/2017 7:50 AM [employer]) Narrative Performed At * TRANSFUSION SERVICE REPORT - SCAN (06/30/2017 5:43 PM [employer]) Narrative Performed At * Electrocardiogram, 12-lead (06/29/2017 7:51 AM [employer]) Narrative Performed At Ventricular Rate 61 BPM GE MUSE Atrial Rate 61 BPM P-R Interval 184 ms QRS Duration 82 ms Q-T Interval 452 ms QTC Calculation(Bazett) 455 ms P [place] 23 degrees R [place] 23 degrees T [place] 71 degrees Normal sinus rhythm Normal ECG No previous ECGs available Confirmed by Camden López Alireaz ([id number]) on 06/29/2017 7:26:36 PM Procedure Note Interface, External Ris In - 06/29/2017 7:26 PM [employer] Ventricular Rate 61 BPM Atrial Rate 61 BPM P-R Interval 184 ms QRS Duration 82 ms Q-T Interval 452 ms QTC Calculation(Bazett) 455 ms P [place] 23 degrees R [place] 23 degrees T [place] 71 degrees Normal sinus rhythm Normal ECG No previous ECGs available Confirmed by Camden López Alireaz ([id number]) on 06/29/2017 7:26:36 PM Performing Organization Address City/[facility] Phone Number [employer] [facility] * Potassium-Stat Lab (06/29/2017 6:46 AM [employer]) Potassium 3.6 3.6 - 5.5 meq/L [facility] Specimen Blood, Arterial Performing Organization Address City/[facility]/Zipcode Phone Number [facility] [address] [place] [address] [facility] * Glucose-Stat Lab (06/29/2017 6:46 AM [employer]) Glucose 92 70 - 110 mg/dL [facility] Specimen Blood, Arterial Performing Organization Address [facility]ode Phone Number [facility] [address] * Type and screen, automated (06/29/2017 6:46 AM [employer]) ABO/RH AUTOMATED (BEAKER) B POSITIVE [facility] Ab Scrn NEGATIVE [facility] Specimen Blood Performing Organization Address [facility]i Phone Number [address] * HGB/HCT (H&H)-Stat Lab (06/29/2017 6:46 AM [employer]) Hemoglobin 10.7 (L) 12.0 - 15.0 g/dL [facility] Hematocrit 31.0 (L) 36.0 - 45.0 % [facility] Specimen Blood, Arterial Performing Organization Address [facility] Phone Number [address] * CBC with platelet count + automated diff (06/29/2017 6:46 AM [employer]) WBC 5.8 3.5 - 10.5 K/L [facility] RBC 3.77 (L) 3.93 - 5.22 M/L [facility] Hemoglobin 11.4 11.2 - 15.7 GM/DL [facility] Hematocrit 36.2 34.1 - 44.9 % [facility] MCV 96.0 (H) 79.4 - 94.8 fL [facility] MCH 30.2 25.6 - 32.2 pg [facility] MCHC 31.5 (L) 32.2 - 35.5 GM/DL [facility] RDW 14.5 (H) 11.7 - 14.4 % [facility] Platelets 145 (L) 150 - 450 K/CU MM [facility] MPV 11.0 9.4 - 12.3 fL [facility] nRBC 0 0 - 0 /100 WBC [facility] % Neutros 50 % [facility] % Lymphs 34 % [facility] % Monos 11 % [facility] % Eos 4 % [facility] % Baso 1 % [facility] # Neutros 2.89 1.56 - 6.13 K/L [facility] # Lymphs 1.94 1.18 - 3.74 K/L [facility] # Monos 0.61 (H) 0.24 - 0.36 K/L [facility] # Eos 0.25 0.04 - 0.36 K/L [facility] # Baso 0.04 0.01 - 0.08 K/L [facility] Immature 0 0 - 1 % [facility] Granulocytes-Relative [facility] Specimen Blood Performing Organization Address City/[facility]/Zipcode Phone Number [facility] [address] [place] [address] [facility] * Prothrombin time/INR (06/29/2017 6:46 AM [employer]) Protime 14.3 11.7 - 14.7 seconds [facility] INR 1.1 <=5.9 [facility] Specimen Blood Narrative Performed At RECOMMENDED COUMADIN/WARFARIN INR THERAPY RANGES [facility] STANDARD DOSE: 2.0 - 3.0 Includes: PROPHYLAXIS for venous thrombosis, [facility] systemic embolization; TREATMENT for venous thrombosis and/or pulmonary embolus. HIGH RISK: Target INR is 2.5-3.5 for patients with mechanical heart valves. Performing Organization Address City/[facility]/Zipcode Phone Number [facility] [address] [place] [address] [phone] [place] [address] * Basic Metabolic Panel (06/29/2017 6:46 AM [employer]) Sodium 143 136 - 145 meq/L [facility] Potassium 3.7 3.5 - 5.1 meq/L [facility] Chloride 103 98 - 107 meq/L [facility] CO2 30 (H) 22 - 29 meq/L [facility] BUN 24 (H) 7 - 21 mg/dL [facility] Creatinine 3.21 (H) 0.57 - 1.25 mg/dL [facility] Glucose 92 70 - 105 mg/dL [facility] Calcium 8.7 8.4 - 10.2 mg/dL [facility] EGFR 14Comment: ESTIMATED GFR IS mL/min/1.73 sq m [facility] NOT ACCURATE CREATININE [facility] CLEARANCE IN PREDICTING GLOMERULAR FILTRATION RATE. ESTIMATED GFR IS NOT APPLICABLE FOR DIALYSIS PATIENTS. Specimen Blood Performing Organization Address City/State/Zipcode Phone Number [address] [address] [facility] after 04/26/2017 Insurance Payer Benefit Subscriber ID Type Phone Address Plan / Group [employer] - MEDICARE [employer] xxxxxxxx [phone] [address] [place] [address] O POS PPO Advance Directives For more information, please contact: [address] [phone] Date Inactivated Comments Code Status Date Activated 06/29/2017 1:45 PM Full Code 06/29/2017 6:07 AM This code status was determined by: Patient
[2018-04-27] MEDS ORDERED: QUESTRAN POWDE378 GM PO (22:51)
[2018-04-27] MEDS ORDERED: GLIPIZIDE10 MG PO (22:51)
[2018-04-27] MEDS ORDERED: SIMETHICONE80 MG PO (22:51)
[2018-04-27] MEDS ORDERED: FOLIC ACID1 MG PO (22:51)
[2018-04-27] MEDS ORDERED: ZOFRAN4 MG PO (22:51)
[2018-04-27] MEDS ORDERED: HUMALOG100 UNIT/3 (22:51)
[2018-04-27] MEDS ORDERED: REGLAN5 MG PO (22:51)
[2018-04-27] MEDS ORDERED: MIDODRINE HCL5 MG PO (22:51)
[2018-04-27] MEDS ORDERED: IPRAT-ALBUT 0.5-3 ML NEB (22:51)
[2018-04-27 22:52] LABS: BASOPHILS % 0.2 % (0.0-1.0); EOSINOPHILS % 0.2 % (0.0-6.0); HEMATOCRIT 35.9 % (34.2-44.1); HEMOGLOBIN 10.7 g/dL (12.0-16.0); LYMPHOCYTES # (AUTO) 0.9 (1.0-3.2); MEAN CORPUSCULAR HEMOGLOBIN 30.7 pg (28-32); MEAN CORPUSCULAR HGB CONC 29.8 g/dL (31-35); MEAN CORPUSCULAR VOLUME 102.9 fL (81-99); MONOCYTES % 6.6 % (4.4-11.3); NEUTROPHILS # (AUTO) 12.5 (2.1-6.9); NEUTROPHILS % 86.2 % (38.7-80.0); PLATELET COUNT 286 x10e3/uL (140-360); RED BLOOD COUNT 3.49 x10e6/uL (3.6-5.1); RED CELL DISTRIBUTION WIDTH 15.5 % (11.7-14.4)
[2018-04-27 23:11] LABS: ALBUMIN 2.1 g/dL (3.5-5.0); ALBUMIN/GLOBULIN RATIO 0.4 (0.8-2.0); CALCIUM 9.5 mg/dL (8.4-10.2); CREATININE, SERUM 4.12 mg/dL (0.57-1.11)
[2018-04-27 23:17] LABS: CREATINE KINASE MB 1.6 ng/mL (0-5.0)
--- NOTE | 2018-04-27 23:29 | Diagnostic Imaging Report ---
History: Fall Comparison studies: None Technique: Axial images were obtained from the skull base to the vertex. Coronal and sagittal reconstructions obtained from the axial data. Dose modulation, iterative reconstruction, and/or weight based adjustment of the mA/kV was utilized to reduce the radiation dose to as low as reasonably achievable. Findings: Scalp/skull: No abnormalities. No fractures, blastic or lytic lesions. Extra-axial spaces: No masses. No fluid collections. Brain sulci: Appropriate for age. Ventricles: Normal in size and configuration. No hydrocephalus. Parenchyma: No abnormal densities. No masses, hemorrhage, acute or chronic cortical vascular insults. Sellar/suprasellar region: No abnormalities Craniocervical junction: Patent foramen magnum. No Chiari one malformation. IMPRESSION: No abnormalities Signed by: Dr. Adam Post M.D. on 04/27/2018 11:25 PM
--- NOTE | 2018-04-28 00:06 | Diagnostic Imaging Report ---
EXAMINATION: CHEST SINGLE (PORTABLE) INDICATION: Altered mental status. COMPARISON: Chest radiograph 10/07/2017 FINDINGS: AP view TUBES and LINES: None. LUNGS: Low lung volumes with vascular crowding and bibasilar atelectasis. PLEURA: No pleural effusion or pneumothorax. HEART AND MEDIASTINUM: The cardiomediastinal silhouette is accentuated by low lung volumes and technique. BONES AND SOFT TISSUES: No acute osseous lesion. Surgical clips project over the medial left arm. UPPER ABDOMEN: No free air under the diaphragm. IMPRESSION: Low lung volumes with vascular crowding and bibasilar atelectasis. Signed by: DR. Bernard Solares MD on 04/28/2018 12:02 AM
[2018-04-28] MEDS ORDERED: MIDODRINE HCL 5 MG TABLET PO ONE (00:57)
[2018-04-28] MEDS ORDERED: MIDODRINE 2.5 MG TAB PO ONE (01:00)
--- NOTE | 2018-04-28 01:10 | Diagnostic Imaging Report ---
EXAM: CT Chest, Abdomen and Pelvis WITHOUT contrast INDICATION: Shortness of breath altered mental status. History of peritoneal carcinoma. ^SOB ^[id number] ^0010 ^Y COMPARISON: Chest CT 03/21/2018, abdominal CT 03/23/2018 TECHNIQUE: Chest, abdomen and pelvis were scanned utilizing a multidetector helical scanner from the lung apex to the pubic symphysis without administration of IV contrast. Coronal and sagittal reformations were obtained. Routine protocol was performed. IV CONTRAST: None ORAL CONTRAST: Water COMPLICATIONS: None RADIATION DOSE: Total DLP: 858.9 mGy*cm Estimated effective dose: (DLP x 0.015 x size factor) mSv CTDIvol has been reviewed. It is below the limits set by the Radiation Protocol Committee (RPC). Dose modulation, iterative reconstruction, and/or weight based adjustment of the mA/kV was utilized to reduce the radiation dose to as low as reasonably achievable. FINDINGS: Absence of intravenous contrast decreases sensitivity for detection of focal lesions and vascular pathology. LINES and TUBES: None. LUNGS AND AIRWAYS: Low lung volumes with lower lobe opacities. Airways are normal. PLEURA: Small left and trace right pleural effusion. HEART AND MEDIASTINUM: Hypoattenuating 3 cm nodule in the left thyroid lobe. No mediastinal, hilar or axillary lymphadenopathy. The heart is mildly enlarged. There is no pericardial effusion. Main pulmonary artery is enlarged measuring 3.9 cm in diameter which is seen with pulmonary hypertension. Ascending aorta measures 4 cm in diameter, ectatic. Moderate atherosclerotic calcifications. HEPATOBILIARY: No focal hepatic lesions. No biliary ductal dilation. GALLBLADDER: Cholecystectomy with suspected 1 cm calculus in the remnant cystic duct. SPLEEN: No splenomegaly. PANCREAS: No focal masses or ductal dilatation. ADRENALS: No adrenal nodules KIDNEYS/URETERS: Atrophic kidneys. No hydronephrosis. No cystic or solid mass lesions. No stones. GI TRACT: No abnormal distention, wall thickening, or evidence of bowel obstruction. Appendix is normal. PELVIC ORGANS/BLADDER: Hysterectomy. Bladder is collapsed. LYMPH NODES: Stable borderline enlarged cardiophrenic node. No lymphadenopathy. VESSELS: Extensive vascular calcifications without aneurysmal dilatation. Limited evaluation without intravenous contrast. PERITONEUM / RETROPERITONEUM: Increased moderate volume ascites, previously small. Diffuse omental thickening is again noted. BONES: Multilevel degenerative disc changes and facet arthropathy of the lumbar spine. Grade 1 anterolisthesis of L4 over L5. SOFT TISSUES: Again noted left lower quadrant and midline infraumbilical abdominal hernias containing thickened omentum. Right mastectomy. Mild anasarca. IMPRESSION: 1. Low lung volumes with bibasilar atelectasis. Pneumonia not excluded. 2. Increased moderate volume ascites. 3. Diffuse omental caking concerning for metastatic disease, possibly breast given right mastectomy and lack of apparent adnexal mass or primary neoplasm. 4. Cholecystectomy with suspected retained stone in the remnant cystic duct. Signed by: DR. Bernard Solares MD on 04/28/2018 1:06 AM
== END 2018-04-28 01:51 ==
LOC: ER 22:04
DX: R41.0 Disorientation, unspecified (principal); I95.89 Other hypotension; I12.0 Hypertensive chronic kidney disease with stage 5 chronic kidney disease or end stage renal disease; E11.22 Type 2 diabetes mellitus with diabetic chronic kidney disease; N18.6 End stage renal disease; Z99.2 Dependence on renal dialysis; K46.9 Unspecified abdominal hernia without obstruction or gangrene; Z91.81 History of falling; Z85.3 Personal history of malignant neoplasm of breast
CPT/HCPCS: 36415; 70450; 71045; 71250; 74176; 80053; 82550; 82553; 83880; 84484; 85025; 93005; 99284